=== PATIENT | female | born 1940 | race Caucasian/White ===

== ENCOUNTER 2020-03-01 08:00 | Inpatient (IN) ==
[2020-03-01] MEDS ORDERED: SODIUM CHLORIDE 0.9% 1000ML 500 ML IV ONE (08:51)
[2020-03-01] MEDS ORDERED: PANTOprazole 80 MG in DEXTROSE 5% 100 ML IV ONE (08:56)
[2020-03-01] MEDS ORDERED: PANTOPRAZOLE BOLUS/DRIP 1 EA IV STA (08:56)
--- NOTE | 2020-03-01 09:09 | Emergency Department Note ---
History of Present Illness General Chief complaint: Bleeding Stated complaint: ALOT OF BLOOD,NOT SURE RECTAL OR URINARY Time Seen by Provider: 03/01/20 08:22 Source: patient Mode of arrival: ambulatory Limitations: no limitations History of Present Illness Maximum Pain Intensity: 8 HPI Narrative: This is a 79-year-old female who presents to the ED with a chief complaint of rectal bleeding. The patient's bleeding started when she woke up this morning. She has had some generalized abdominal pain/cramps that felt like a. For the past couple days. Some diarrhea last night without blood. The patient initially did not know where the blood was coming from as it was just saturating her depends diaper. She has had some weakness throughout the week. She also reports a 20 pound unintentional weight loss in the last month. She does report a history of breast and colon cancer. The colon cancer was about 6 years ago and she had a resection as well as chemotherapy. No issues since en. Patient denies any lightheadedness, dizziness, chest pains or shortness of breath. She has not had recent fevers or illness. She is not on any blood thinners or antiplatelets. The patient does have a history of right ureteral stent placed 2 weeks ago. Home Medications Home Medications Medication Instructions Recorded Confirmed Type Lactobacillus acidophilus 5,000 mmu cells PO DAILY #30 cap 01/30/20 03/01/20 Rx acetaminophen 500 mg tablet 500 mg PO Q6H PRN #30 tab 01/30/20 03/01/20 Rx nitrofurantoin macrocrystal 50 mg 50 mg PO DAILY #30 cap 01/30/20 03/01/20 Rx capsule atenolol 50 mg PO HS 01/31/20 03/01/20 History famotidine [Pepcid AC] 20 mg PO DAILY PRN 01/31/20 03/01/20 History lisinopril 20 mg PO HS 01/31/20 03/01/20 History omeprazole 20 mg PO QAM 01/31/20 03/01/20 History amlodipine 50 mg PO DAILY 03/01/20 03/01/20 History Allergies Allergy/AdvReac Type Severity Reaction Status Date / Time No Known Allergies Allergy Unknown Unverified 03/01/20 09:01 Past Med/Surg History Medical History Anxiety Breast cancer pre-cancerous/+ right lumpectomy- RUE limb restriction Colon cancer s/p colon resection, chemo/xrt (2012) CVA (cerebral vascular accident) 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- residual "slowing" in general Depression Fibromyalgia Hypertension Obesity Renal calculus Stage 3 chronic kidney disease Surgical History H/O breast surgery 2012 H/O: hysterectomy History of colon surgery r/t colon cancer Hx of lumpectomy right Family History Family/Other Prostate cancer Social History Smoking Status: Current every day smoker packs per day: 1; Cigarettes Per Day: 1/2 ppd x 20 years; Second Hand Exposure: No; Hx Alcohol Use: No Hx Substance Use: No Preferred Language: [place] Communication Ability: Effective Executive Receptionist Required: No Beliefs That Will Affect Care: None marital status: Current Living Situation: Family Current Living Situation Comment: live with daughter current occupational status: retired Feels Safe at Home: Yes Review of Systems A total of 10 systems reviewed and were otherwise negative Physical Exam Vital Signs: Vital Signs - 24 hr 03/01/20 08:08 03/01/20 08:35 03/01/20 09:04 Temperature 37.1 C Temperature Source Oral Oral Pulse Rate 64 Pulse Rhythm Regular Pulse Strength Normal Respiratory Rate 18 Respiratory Effort / Characteristics Non-Labored Sponta neous Respiratory Depth Normal Respiratory Patter n Regular Blood Pressure 148/83 H Blood Pressure Dodie n 104 Blood Pressure Pos ition Sitting Pulse Oximetry 96 96 Oxygen Delivery Me thod Room Air Room Air Room Air Sepsis Recent Feve r Within 48 Hours No Sepsis New/Unexpla ined Change in Men joo Status No Sepsis Action Take n by Nursing No Action Required 03/01/20 09:50 03/01/20 09:57 03/01/20 10:00 Temperature Temperature Source Pulse Rate 72 70 71 Pulse Rhythm Pulse Strength Respiratory Rate 23 20 Respiratory Effort / Characteristics Respiratory Depth Respiratory Patter n Blood Pressure 171/97 H 178/89 H Blood Pressure Dodie n 123 114 Blood Pressure Pos ition Pulse Oximetry Oxygen Delivery Me thod Sepsis Recent Feve r Within 48 Hours Sepsis New/Unexpla ined Change in Men joo Status Sepsis Action Take n by Nursing Physical Exam: CONSTITUTIONAL/VITAL SIGNS: Reviewed / noted above. GENERAL: Non-toxic in appearance. INTEGUMENTARY: Warm, dry, and [employer]. HEAD: Normocephalic. EYES: without scleral icterus or trauma. ENT/OROPHARYNX: clear and moist. LYMPHADENOPATHY/NECK: Is supple without lymphadenopathy or meningismus. RESPIRATORY: Lungs clear and equal. CARDIOVASCULAR: Regular rate and rhythm. GI/ABDOMEN: Soft and tender diffusely. No organomegaly or pulsatile mass. No rebound or guarding. Normal bowel sounds. EXTREMITIES: Warm and well perfused. BACK: No CVA tenderness. NEUROLOGICAL: Intact without focal deficits. PSYCHIATRIC: normal affect. MUSCULOSKELETAL: Normally developed with good muscle tone. RECTAL: Gross blood on rectal exam. No palpable mass. TRIAGE NURSING DOCUMENTATION REVIEWED. Course Administered Medications Pantoprazole Sodium 40 mg/ (Dextrose) 100 mls @ 20 mls/hr IV Q5H CHAO Stop: 03/31/20 09:11 Last Admin: 03/01/20 09:47 Dose: 8 mg/hr, 20 mls/hr Documented by: [id number] Lactated Ringer's (Lr) 1,000 mls @ 100 mls/hr IV .Q10H CHAO Stop: 03/02/20 05:44 Last Admin: 03/01/20 10:27 Dose: 100 mls/hr Documented by: [id number] Ioversol (Optiray 320 100ml) 94 ml IV ONCE PRN PRN Reason: Interaction Checking Stop: 03/05/20 10:21 Last Admin: 03/01/20 10:22 Dose: 94 ml Documented by: [id number] Discontinued Medications Sodium Chloride (Nss 1000ml) 500 mls @ 999 mls/hr IV .Q31M ONE Stop: 03/01/20 09:21 Last Infusion: 03/01/20 10:26 Dose: 0 mls/hr Documented by: [id number] Admin: 03/01/20 09:47 Dose: 999 mls/hr Documented by: [id number] Pantoprazole Sodium (Protonix Bolus/Drip) 0 mls @ 1 mls/hr IV ONE STA Stop: 03/01/20 08:57 Last Admin: 03/01/20 10:28 Dose: Not Given Documented by: [id number] Pantoprazole Sodium 80 mg/ (Dextrose) 120 mls @ 400 mls/hr IV NOW ONE Stop: 03/01/20 09:13 Last Infusion: 03/01/20 10:15 Dose: 0 mls/hr Documented by: [id number] Admin: 03/01/20 09:47 Dose: 400 mls/hr Documented by: [id number] Medical Decision Making Differential Diagnosis Differential includes acute coronary syndrome, myocardial infarction, CVA, TIA, anemia, infection, pneumonia, UTI, pyelonephritis, poor nutrition, dehydration, electrolyte disturbance,hypoglycemia, GI bleeding. Medical Records Attestation: I reviewed the patient's medical records. Home Medications Current Medication List: was personally reviewed by me Laboratory Data Attestation: I reviewed the patient's lab results. Result diagrams: 03/01/20 09:03 03/01/20 09:03 Lab Results 03/01/20 03/01/20 03/01/20 Range/Units 09:03 09:03 09:03 WBC 10.37 (4.8-10.8) K/uL RBC 4.25 (4.2-5.4) M/uL Hgb 12.4 (12.0-16.0) g/dL Hct 38.6 (37-47) % MCV 90.8 (80-100) fL MCH 29.2 (25-34) pg MCHC 32.1 (32-36) g/dL RDW Std Deviation 52.2 H (36.4-46.3) fL RDW Coeff of Radha 15.8 H (11.5-14.5) % Plt Count 184 (130-400) K/uL MPV 10.3 (7.4-10.4) fL Immature Gran % (Auto) 0.2 % Neut % (Auto) 83.1 % Lymph % (Auto) 4.7 % [place] % (Auto) 11.0 % Eos % (Auto) 0.8 % Baso % (Auto) 0.2 % Neut # (Auto) 8.62 H (1.4-6.5) K/uL Lymph # (Auto) 0.49 L (1.2-3.4) K/uL [place] # (Auto) 1.14 H (0.11-0.59) K/uL Eos # (Auto) 0.08 (0-0.5) K/uL Baso # (Auto) 0.02 (0-0.2) K/uL Immature Gran # (Auto) 0.02 (0.00-0.02) K/uL PT (9.0-12.0) Seconds INR (0.9-1.1) APTT (21.0-31.0) Seconds PTT Ratio Sodium 142 (136-145) mmol/L Potassium 4.4 (3.5-5.1) mmol/L Chloride 114 H (98-107) mmol/L Carbon Dioxide 24 (21-32) mmol/L Anion Gap 4.0 (3-11) BUN 27 H (7-18) mg/dl Creatinine 1.50 H (0.6-1.2) mg/dl Est Cr Clr Drug Dosing 29.2 ml/min Est GFR ( Amer) 38.5 Est GFR (Non-Af Amer) 33.3 BUN/Creatinine Ratio 18.1 (10-20) Glucose 113 H (70-99) mg/dl Calcium 9.4 (8.5-10.1) mg/dl Total Bilirubin 0.6 (0.2-1) mg/dl AST 9 L (15-37) U/L ALT 12 (12-78) U/L Alkaline Phosphatase 126 H (45-117) U/L Total Protein 6.7 (6.4-8.2) gm/dl Albumin 3.1 L (3.4-5.0) gm/dl Globulin 3.6 (2.5-4.0) gm/dl Albumin/Globulin Ratio 0.9 (0.9-2) Lipase 73 (73-393) U/L Blood Type A Positive Antibody Screen NEGATIVE 03/01/20 Range/Units 09:03 WBC (4.8-10.8) K/uL RBC (4.2-5.4) M/uL Hgb (12.0-16.0) g/dL Hct (37-47) % MCV (80-100) fL MCH (25-34) pg MCHC (32-36) g/dL RDW Std Deviation (36.4-46.3) fL RDW Coeff of Radha (11.5-14.5) % Plt Count (130-400) K/uL MPV (7.4-10.4) fL Immature Gran % (Auto) % Neut % (Auto) % Lymph % (Auto) % [place] % (Auto) % Eos % (Auto) % Baso % (Auto) % Neut # (Auto) (1.4-6.5) K/uL Lymph # (Auto) (1.2-3.4) K/uL [place] # (Auto) (0.11-0.59) K/uL Eos # (Auto) (0-0.5) K/uL Baso # (Auto) (0-0.2) K/uL Immature Gran # (Auto) (0.00-0.02) K/uL PT 11.5 (9.0-12.0) Seconds INR 1.1 (0.9-1.1) APTT 27.9 (21.0-31.0) Seconds PTT Ratio 1.0 Sodium (136-145) mmol/L Potassium (3.5-5.1) mmol/L Chloride (98-107) mmol/L Carbon Dioxide (21-32) mmol/L Anion Gap (3-11) BUN (7-18) mg/dl Creatinine (0.6-1.2) mg/dl Est Cr Clr Drug Dosing ml/min Est GFR ( Amer) Est GFR (Non-Af Amer) BUN/Creatinine Ratio (10-20) Glucose (70-99) mg/dl Calcium (8.5-10.1) mg/dl Total Bilirubin (0.2-1) mg/dl AST (15-37) U/L ALT (12-78) U/L Alkaline Phosphatase (45-117) U/L Total Protein (6.4-8.2) gm/dl Albumin (3.4-5.0) gm/dl Globulin (2.5-4.0) gm/dl Albumin/Globulin Ratio (0.9-2) Lipase (73-393) U/L Blood Type Antibody Screen Imaging Data Radiologist's Impression: CT scan of the abdomen pelvis: IMPRESSION: 1. Interval development of moderate colonic wall thickening and mild pericolonic infiltration of the distal transverse colon, splenic flexure, descending colon, sigmoid colon and likely the rectum since CT of January 10, 2020. This represents a nonspecific colitis which may be infectious, ischemic or inflammatory in etiology. No free air or abscess. 2. Severe right hydronephrosis, improved since CT of January 10, 2020 following ureteral stent insertion. Multiple right ureteral calculi/fragments that measure up to 7 mm, as described above. Urothelial thickening and mild perinephric and periureteral infiltration. Bilateral nephrolithiasis. No left ureteral calculi. 3. Stable presacral infiltration/fluid since CT of January 10, 2020. This is likely postsurgical. Previous sigmoid resection. No bowel obstruction. Blood Pressure Blood Pressure Findings: Elevated blood pressure Blood Pressure Disposition: further management by hospitalist MDM Narrative This is a 79-year-old female who presents to the ED with a chief complaint of lower GI bleeding. The patient's hemoglobin is currently fine. The patient otherwise has unremarkable electrolytes and chemistry panel. Her BUN is 27 creatinine is 1.5. The patient's rectal bleeding appears to be moderate. She was given some IV fluids here. She was also given some IV Protonix. The patient will require observation and further evaluation for her GI bleeding with her history of colon cancer. She is felt to be stable for admission and further evaluation inpatient. Impression & Plan Acute lower gastrointestinal bleeding Discharge Plan Visit Data Chief Complaint: Bleeding Stated Complaint: ALOT OF BLOOD,NOT SURE RECTAL OR URINARY ED Provider: Leo Mayberry ED Midlevel Provider: Demetrio Ann Discharge Problem: Acute lower gastrointestinal bleeding Patient Disposition: Being Evaluated by Hospitalist Condition: Fair Forms Stand Alone Forms: [facility], [facility] Emergency Department, Important Visit Information Prescriptions Prescriptions: No Action nitrofurantoin macrocrystal [Macrodantin] 50 mg capsule 50 mg PO DAILY Qty: 30 RF: 2 acetaminophen [Tylenol Extra Strength] 500 mg tablet 500 mg PO Q6H PRN (Reason: fever) Qty: 30 RF: 0 Lactobacillus acidophilus [Acidophilus] Capsule 5,000 mmu cells PO DAILY Qty: 30 RF: 0 lisinopril 20 mg tablet 20 mg PO HS RF: 0 famotidine [Pepcid AC] 20 mg tablet 20 mg PO DAILY PRN (Reason: Stomach Upset) RF: 0 omeprazole 20 mg capsule,delayed release(DR/EC) 20 mg PO QAM RF: 0 atenolol 50 mg tablet 50 mg PO HS RF: 0 amlodipine 5 mg tablet 50 mg PO DAILY RF: 0 Referrals Referrals: Jaden Jones MD [Primary Care Provider] -
--- NOTE | 2020-03-01 09:16 | Emergency Department Note ---
ED Visit Note This patient was seen in concert with Dr. Mayberry and we discussed and agreed upon the history, physical, assessment, and plan. See attending's note for details. . Resident Activity Tracking Resident Involvement: Resident Care Provided Care Provided: Adult ED
[2020-03-01 09:26] LABS: Basophils # (auto) 0.02 K/uL (0-0.2); Basophils % (auto) 0.2 %; Eosinophils # (auto) 0.08 K/uL (0-0.5); Eosinophils % (auto) 0.8 %; Hematocrit (blood only) 38.6 % (37-47); Hemoglobin 12.4 g/dL (12.0-16.0); Immature Granulocytes # (auto) 0.02 K/uL (0.00-0.02); Immature Granulocytes % (auto) 0.2 %; Lymphocytes # (auto) 0.49 K/uL (1.2-3.4); Lymphocytes % (auto) 4.7 %; Mean Corpuscular Hemoglobin 29.2 pg (25-34); Mean Corpuscular Hgb Conc 32.1 g/dL (32-36); Mean Corpuscular Volume 90.8 fL (80-100); Mean Platelet Volume 10.3 fL (7.4-10.4); Monocytes # (auto) 1.14 K/uL (0.11-0.59); Neutrophils # (auto) 8.62 K/uL (1.4-6.5); Neutrophils % (auto) 83.1 %; Platelet Count 184 K/uL (130-400); RDW Coefficient of Variation 15.8 % (11.5-14.5); RDW Standard Deviation 52.2 fL (36.4-46.3); Red Blood Count 4.25 M/uL (4.2-5.4); White Blood Count 10.37 K/uL (4.8-10.8)
[2020-03-01 09:38] LABS: INR 1.1 (0.9-1.1); Partial Thromboplastin Time 27.9 Seconds (21.0-31.0); Prothrombin Time 11.5 Seconds (9.0-12.0)
[2020-03-01 09:40] LABS: Albumin Level 3.1 gm/dl (3.4-5.0); BUN Creatinine Ratio 18.1 (10-20); Calcium 9.4 mg/dl (8.5-10.1); Creatinine Clr Calc Pharmacy 29.2 ml/min; Est GFR (African American) 38.5; Est GFR (Non-African American) 33.3; Potassium 4.4 mmol/L (3.5-5.1)
[2020-03-01 09:43] LABS: Albumin Globulin Ratio 0.9 (0.9-2); Bilirubin,Total 0.6 mg/dl (0.2-1); Globulin 3.6 gm/dl (2.5-4.0); Total Protein 6.7 gm/dl (6.4-8.2)
[2020-03-01] MEDS: PANTOprazole 40 MG in DEXTROSE 5% 100 ML IV SCH ×4 (09:47→23:51)
[2020-03-01] MEDS ORDERED: IOVERSOL 100ml IV PRN (10:22)
[2020-03-01] MEDS: LACTATED RINGER'S 1,000 ML IV SCH (10:27)
--- NOTE | 2020-03-01 10:43 | CT Scan Report ---
CT OF THE ABDOMEN AND PELVIS WITH CONTRAST CLINICAL HISTORY: Ab pain, Rectal bleed, hx colon cx COMPARISON STUDY: CT of the abdomen and pelvis January 10, 2020. TECHNIQUE: Following IV administration of 94 mL of Optiray-320, axial images of the abdomen and pelvi s were obtained from the lung bases to the proximal femurs. Images were reviewed in the axial, sagitt al, and coronal planes. IV contrast was administered without complication. Automated exposure contro l was utilized for the study. A dose lowering technique was utilized adhering to the principles of A AMALIA. CT DOSE: 474.62 mGy.cm FINDINGS: Bases are unremarkable. No pneumatosis, free air or portal venous gas is present. The liver , spleen, adrenal glands and pancreas are unremarkable. A few peripherally calcified fat attenuation foci within the omentum measure up to 2.4 cm. These are unchanged since CT of January 10, 2020. These are probably benign. Severe right hydronephrosis is noted. This has improved since CT of January 10, 2020 fo llowing ureteral stent insertion. Urothelial thickening is noted. There is right perinephric and [place] ureteral infiltration which is mild. Multiple right ureteral calculi/fragments are noted. These inclu de a 7 mm right ureteral calculus located just inferior to the sacroiliac joint. There is an addition al 5 mm distal right ureteral calculus. There are multiple smaller calculi. Bilateral renal calculi m easure up to 3 mm. There are no left ureteral. Postsurgical findings consistent with a sigmoid resect ion are noted. Presacral infiltration/fluid is unchanged. No abdominal or pelvic lymphadenopathy is p resent. The appendix is normal. There is interval development of moderate wall thickening with elton lonic infiltration of the distal transverse colon, descending colon and sigmoid colon as well as like ly the rectum since CT of January 20, 2020. There is no free air or abscess. Major vasculature is patent . There are no suspicious osseous lesions. No biliary or pancreatic ductal dilatation is present. IMPRESSION: 1. Interval development of moderate colonic wall thickening and mild pericolonic infiltration of the distal transverse colon, splenic flexure, descending colon, sigmoid colon and likely the rectum since CT of January 10, 2020. This represents a nonspecific colitis which may be infectious, ischemic or infla mmatory in etiology. No free air or abscess. 2. Severe right hydronephrosis, improved since CT of January 10, 2020 following ureteral stent insertion. Multiple right ureteral calculi/fragments that measure up to 7 mm, as described above. Urothelial th ickening and mild perinephric and periureteral infiltration. Bilateral nephrolithiasis. No left urete ral calculi. 3. Stable presacral infiltration/fluid since CT of January 10, 2020. This is likely postsurgical. Previou s sigmoid resection. No bowel obstruction. ACT 112: Negative or not required by law. Electronically signed by: Finesse Doss M.D. 03/01/2020 10:42 AM
[2020-03-01 11:32] LABS: Appearance Urine Cloudy (Clear); Bacteria Urine Automated Negative (Negative); Bilirubin Urine Negative (Negative); Blood Urine 3+ (Negative); Color Urine Yellow; Epithelial Cell Urine Auto >30 /lpf (0-5); Glucose Urine UA Negative (Negative); Ketones Urine Negative (Negative); Leukocyte Esterase Urine 2+ (Negative); Nitrite Urine Negative (Negative); Protein Urine 2+ (Negative); RBC Urine Automated >30 /hpf (0-4); Specific Gravity Urine 1.023 (1.000-1.030); Urobilinogen Urine Negative (Negative); pH Urine 6.5 (4.5-7.5)
--- NOTE | 2020-03-01 12:00 | History & Physical Report ---
Date of Service March 01, 2020 Assessment & Plan (1) Rectal bleed: (2) Nonspecific colitis: This is a 79-year-old female with PMH of hypertension, CKD 3, ureteral stones s/p right stent placement by urology last month, GERD, fibromyalgia, unspecified dementia, history of CVA without residual deficit, history of rectal cancer and other medical problems as below who presents with rectal bleeding since this morning. -Nausea and cramping LLQ abdominal pain since last evening. No fever, chills or melena. Hemoccult positive on rectal exam by ED physician -History of colon cancer 10 years prior with sigmoid resection and subsequent chemotherapy. No known recurrence since -NSAID use and current 1/2 ppd smoker -CT abd/pelvis with interval development of moderate colonic wall thickening and mild pericolonic infiltration of distal transverse colon, splenic flexure, descending colon, sigmoid colon and likely to rectum. Represents noninfectious colitis which may be infectious, ischemic or inflammatory in etiology. No free air or abscess -Hemoglobin stable at 12.4. No leukocytosis. Trend H&H every 6 hours, keep n.p.o., continue IV Protonix bolus and drip started in ED, gentle IV fluids and pain control -Stool culture and C. difficile pending. Will cover for possible infectious colitis with Rocephin and flagyl -Discussed with GI service, who will evaluate patient (3) Complicated UTI (urinary tract infection): (4) Right ureteral calculus: History of ureteral stones with recent right ureteral stent insertion by [facility] urology on 01/10/20. Completed course of postop Macrobid -CT abd/pelvis today with severe right hydronephrosis, improved since CT of January 10, 2020 following ureteral stent insertion. Multiple right ureteral calculi/fragments that measure up to 7 mm, as described above. Urothelial thickening and mild perinephric and periureteral infiltration. Bilateral nephrolithiasis. No left ureteral calculi -UA abnormal. Urine culture pending. Cover empirically with Rocephin (5) Hypertension: BP elevated at 189/110 initially. Repeat BP 178/89 Had stopped antihypertensives until recently, when she followed up with PCP and was instructed to resume atenolol and amlodipine -Will move amlodipine and atenolol to take in the morning and lisinopril in the evening, which will hopefully improve BP -Monitor closely (6) Stage 3 chronic kidney disease: Baseline creatinine ~1.3/1.4. Receiving gentle IV fluids, so we will continue lisinopril for now. Monitor daily BMP (7) CVA (cerebral vascular accident): H/o right anterior occipital stroke in 10/2018 per record- residual "slowing" in general -Not currently taking aspirin (8) Anxiety: (9) Fibromyalgia: Continue venlafaxine DVT Ppx: SCDs Code status: DNR per discussion with patient, daughter PCP: Karen Dispo: Admitted to [facility]. Discharge planning ordered. Patient seen in collaboration with Dr. Tolbert. Please see addendum. History of Present Illness Chief Complaint: Rectal bleeding Primary Care Provider: Jaden Jones MD This is a 79-year-old female with PMH of hypertension, CKD 3, ureteral stones s/p right stent placement by urology last month, GERD, fibromyalgia, unspecified dementia, history of CVA without residual deficit, history of rectal cancer and other medical problems as below who presents with rectal bleeding since this morning. Patient felt nauseous with a few episodes of brown diarrhea last evening. States that diarrhea is somewhat normal for her, so she was not concerned. This morning, however, she awoke to bright red blood soaking the bottom of her depends. When she used the bathroom, she continued to have bright red blood output into the toilet bowl. Denies any clots. Endorses associated diffuse cramping abdominal pain with some bloating. No fever or chills. Denies any lightheadedness, visual changes, chest pain or palpitations. No shortness of breath. Does have history of colon cancer approximately 10 years ago that was treated in [place] with partial colectomy and chemo. Denies any recurrence or issues since then. Reported weight loss to ED providers but then unsure to me. Per chart review, patient has lost approximately 13 pounds since November. Denies any dysuria, pyuria, melena or constipation. History of frequent Motrin use but then switch to extra strength Tylenol a few months before resuming it this past week. Has taken 600 mg 4 times over the last 6 days. Currently smokes 1/2 ppd. Allergies Allergy/AdvReac Type Severity Reaction Status Date / Time No Known Allergies Allergy Unknown Unverified 03/01/20 09:01 Home Medications Home Medications Medication Instructions Recorded Confirmed Type Lactobacillus acidophilus 5,000 mmu cells PO DAILY #30 cap 01/30/20 03/01/20 Rx acetaminophen 1,000 mg PO HS PRN 03/01/20 03/01/20 History albuterol sulfate 1 inh INHALATION QID PRN 03/01/20 03/01/20 History amlodipine 5 mg PO HS 03/01/20 03/01/20 History atenolol 100 mg PO HS 03/01/20 03/01/20 History atorvastatin 20 mg PO HS 03/01/20 03/01/20 History cyanocobalamin (vitamin B-12) 1,000 mcg PO HS 03/01/20 03/01/20 History docusate sodium 100 mg PO HS PRN 03/01/20 03/01/20 History gabapentin 300 mg PO BID 03/01/20 03/01/20 History ibuprofen [Motrin IB] 200 mg PO Q4H PRN 03/01/20 03/01/20 History lisinopril 40 mg PO HS 03/01/20 03/01/20 History omeprazole 40 mg PO DAILY PRN 03/01/20 03/01/20 History venlafaxine 37.5 mg PO DAILY 03/01/20 03/01/20 History Past Med/Surg History Family History Family/Other Prostate cancer Social History Smoking Status: Current every day smoker packs per day: 1; Cigarettes Per Day: 1/2 ppd x 20 years; Second Hand Exposure: No; Hx Alcohol Use: No Hx Substance Use: No Preferred Language: Kyrgyz Communication Ability: Effective Speed Belt Sander Required: No Beliefs That Will Affect Care: None marital status: Current Living Situation: Family Current Living Situation Comment: live with daughter current occupational status: retired Feels Safe at Home: Yes Review of Systems Review of Systems: At least ten systems reviewed and negative except as noted in the HPI. Physical Exam Physical Exam: General Appearance: WD/WN, vitals as above, NAD, sitting up in bed, anxious Head: normocephalic, atraumatic Eyes: normal inspection, PERRL, conjunctivae normal, anicteric sclerae ENT: external ear and nose normal, oropharynx normal Neck: trachea midline, no thyromegaly normal visual inspection Respiratory: normal respiratory effort, lungs clear to auscultation, no wheeze, rales, rhonchi. No accessory muscle use Cardiovascular: regular rate, rhythm, no murmur appreciated, normal peripheral pulses. Vessels: no JVD Chest: normal inspection of chest Abdomen/GI: normal bowel sounds, soft, TTP of LLQ and mid-abdomen, non- distended, no hepatosplenomegaly Extremities/Musculoskeletal: no cyanosis or clubbing, extremities motor strength 5/5 Neurologic: PERRL, EOMI, accommodation nl, no face palsy, no dysarthria, CN's II-XI intact bilaterally and moves all extremities Psychiatric: A+Ox3 but underlying dementia, euthymic affect Skin: no rashes, normal color, warm/dry Results & Data Results & Data ([facility]) Vital Signs (Past 12 Hours) Vital Signs Temp Pulse Resp BP Pulse Ox 03/01/20 10:00 71 20 178/89 H 03/01/20 09:57 70 03/01/20 09:50 72 23 171/97 H 03/01/20 09:04 96 03/01/20 08:08 37.1 C 64 18 148/83 H 96 Laboratory Results Short CBC 03/01/20 03/01/20 03/01/20 Range/Units 09:03 09:03 09:03 WBC 10.37 (4.8-10.8) K/uL RBC 4.25 (4.2-5.4) M/uL Hgb 12.4 (12.0-16.0) g/dL Hct 38.6 (37-47) % MCV 90.8 (80-100) fL MCH 29.2 (25-34) pg MCHC 32.1 (32-36) g/dL RDW Std Deviation 52.2 H (36.4-46.3) fL RDW Coeff of Radha 15.8 H (11.5-14.5) % Plt Count 184 (130-400) K/uL MPV 10.3 (7.4-10.4) fL Immature Gran % (Auto) 0.2 % Neut % (Auto) 83.1 % Lymph % (Auto) 4.7 % [place] % (Auto) 11.0 % Eos % (Auto) 0.8 % Baso % (Auto) 0.2 % Neut # (Auto) 8.62 H (1.4-6.5) K/uL Lymph # (Auto) 0.49 L (1.2-3.4) K/uL [place] # (Auto) 1.14 H (0.11-0.59) K/uL Eos # (Auto) 0.08 (0-0.5) K/uL Baso # (Auto) 0.02 (0-0.2) K/uL Immature Gran # (Auto) 0.02 (0.00-0.02) K/uL PT (9.0-12.0) Seconds INR (0.9-1.1) APTT (21.0-31.0) Seconds PTT Ratio Sodium 142 (136-145) mmol/L Potassium 4.4 (3.5-5.1) mmol/L Chloride 114 H (98-107) mmol/L Carbon Dioxide 24 (21-32) mmol/L Anion Gap 4.0 (3-11) BUN 27 H (7-18) mg/dl Creatinine 1.50 H (0.6-1.2) mg/dl Est Cr Clr Drug Dosing 29.2 ml/min Est GFR ( Amer) 38.5 Est GFR (Non-Af Amer) 33.3 BUN/Creatinine Ratio 18.1 (10-20) Glucose 113 H (70-99) mg/dl Calcium 9.4 (8.5-10.1) mg/dl Total Bilirubin 0.6 (0.2-1) mg/dl AST 9 L (15-37) U/L ALT 12 (12-78) U/L Alkaline Phosphatase 126 H (45-117) U/L Total Protein 6.7 (6.4-8.2) gm/dl Albumin 3.1 L (3.4-5.0) gm/dl Globulin 3.6 (2.5-4.0) gm/dl Albumin/Globulin Ratio 0.9 (0.9-2) Lipase 73 (73-393) U/L Urine Color Urine Appearance (Clear) Urine pH (4.5-7.5) Ur Specific Jackson (1.000-1.030) Urine Protein (Negative) Urine Glucose (UA) (Negative) Urine Ketones (Negative) Urine Blood (Negative) Urine Nitrite (Negative) Urine Bilirubin (Negative) Urine Urobilinogen (Negative) Ur Leukocyte Esterase (Negative) Urine WBC (Auto) (0-5) /hpf Urine RBC (Auto) (0-4) /hpf U Hyaline Cast (Auto) (0-5) /lpf U Epithel Cells (Auto) (0-5) /lpf Urine Bacteria (Auto) (Negative) Blood Type A Positive Antibody Screen NEGATIVE 03/01/20 03/01/20 Range/Units 09:03 11:05 WBC (4.8-10.8) K/uL RBC (4.2-5.4) M/uL Hgb (12.0-16.0) g/dL Hct (37-47) % MCV (80-100) fL MCH (25-34) pg MCHC (32-36) g/dL RDW Std Deviation (36.4-46.3) fL RDW Coeff of Radha (11.5-14.5) % Plt Count (130-400) K/uL MPV (7.4-10.4) fL Immature Gran % (Auto) % Neut % (Auto) % Lymph % (Auto) % [place] % (Auto) % Eos % (Auto) % Baso % (Auto) % Neut # (Auto) (1.4-6.5) K/uL Lymph # (Auto) (1.2-3.4) K/uL [place] # (Auto) (0.11-0.59) K/uL Eos # (Auto) (0-0.5) K/uL Baso # (Auto) (0-0.2) K/uL Immature Gran # (Auto) (0.00-0.02) K/uL PT 11.5 (9.0-12.0) Seconds INR 1.1 (0.9-1.1) APTT 27.9 (21.0-31.0) Seconds PTT Ratio 1.0 Sodium (136-145) mmol/L Potassium (3.5-5.1) mmol/L Chloride (98-107) mmol/L Carbon Dioxide (21-32) mmol/L Anion Gap (3-11) BUN (7-18) mg/dl Creatinine (0.6-1.2) mg/dl Est Cr Clr Drug Dosing ml/min Est GFR ( Amer) Est GFR (Non-Af Amer) BUN/Creatinine Ratio (10-20) Glucose (70-99) mg/dl Calcium (8.5-10.1) mg/dl Total Bilirubin (0.2-1) mg/dl AST (15-37) U/L ALT (12-78) U/L Alkaline Phosphatase (45-117) U/L Total Protein (6.4-8.2) gm/dl Albumin (3.4-5.0) gm/dl Globulin (2.5-4.0) gm/dl Albumin/Globulin Ratio (0.9-2) Lipase (73-393) U/L Urine Color Yellow Urine Appearance Cloudy A (Clear) Urine pH 6.5 (4.5-7.5) Ur Specific Jackson 1.023 (1.000-1.030) Urine Protein 2+ H (Negative) Urine Glucose (UA) Negative (Negative) Urine Ketones Negative (Negative) Urine Blood 3+ H (Negative) Urine Nitrite Negative (Negative) Urine Bilirubin Negative (Negative) Urine Urobilinogen Negative (Negative) Ur Leukocyte Esterase 2+ H (Negative) Urine WBC (Auto) 10-30 H (0-5) /hpf Urine RBC (Auto) >30 H (0-4) /hpf U Hyaline Cast (Auto) 1-5 (0-5) /lpf U Epithel Cells (Auto) >30 H (0-5) /lpf Urine Bacteria (Auto) Negative (Negative) Blood Type Antibody Screen BMP 03/01/20 09:03 Sodium 142 Potassium 4.4 Chloride 114 H Carbon Dioxide 24 BUN 27 H Creatinine 1.50 H Glucose 113 H Calcium 9.4 Liver Function 03/01/20 Range/Units 09:03 Total Bilirubin 0.6 (0.2-1) mg/dl AST 9 L (15-37) U/L ALT 12 (12-78) U/L Alkaline Phosphatase 126 H (45-117) U/L Albumin 3.1 L (3.4-5.0) gm/dl Urine 03/01/20 Range/Units 11:05 Urine Color Yellow Urine Appearance Cloudy A (Clear) Urine pH 6.5 (4.5-7.5) Ur Specific Jackson 1.023 (1.000-1.030) Urine Protein 2+ H (Negative) Urine Glucose (UA) Negative (Negative) Diagnostic Findings CT abd/pelvis: IMPRESSION: 1. Interval development of moderate colonic wall thickening and mild pericolonic infiltration of the distal transverse colon, splenic flexure, descending colon, sigmoid colon and likely the rectum since CT of January 10, 2020. This represents a nonspecific colitis which may be infectious, ischemic or inflammatory in etiology. No free air or abscess. 2. Severe right hydronephrosis, improved since CT of January 10, 2020 following ureteral stent insertion. Multiple right ureteral calculi/fragments that measure up to 7 mm, as described above. Urothelial thickening and mild perinephric and periureteral infiltration. Bilateral nephrolithiasis. No left ureteral calculi. 3. Stable presacral infiltration/fluid since CT of January 10, 2020. This is likely postsurgical. Previous sigmoid resection. No bowel obstruction. Code Status & VTE Plan VTE Prophylaxis Plan VTE Prophylaxis will be ordered: Yes Supervising Physician Co-Signing Physician Notes Patient is a 79-year-old female with history of rectal cancer, hypertension, CKD stage III, nephrolithiasis, fibromyalgia and other medical problems presents with history of rectal rectal bleeding associated with nausea, diarrhea, abdominal pain and bloating since 1 day duration. She admits to taking ibuprofen intermittently. Patient had partial colectomy for colon cancer in the past. CT abdomen showed findings suggestive of moderate chronic wall thickening and mild stanford-colonic infiltration of the distal transverse colon, splenic flexure, descending colon, sigmoid colon and likely the rectum. Also noted severe right hydronephrosis which is improved from prior CT imaging, urothelial thickening and mild perinephric and periureteral infiltration. Her hemoglobin is noted to be 12.4. No leukocytosis noted. Creatinine 1.5. BUN mildly elevated at 27. On exam patient is moderately built and nourished, no apparent distress, normocephalic atraumatic, lungs are clear to auscultation, decreased breath sounds, S1-S2, no murmur, abdomen soft, left lower quadrant tender, no guarding or rigidity, normal bowel sounds, no pedal edema, grossly no focal neurologic deficits. Patient is admitted for management of acute lower GI bleed, colitis. Continue Protonix drip, IV fluids. Ibuprofen discontinued. Avoid anticoagulants. Monitor H&H and transfuse PRBCs as needed. GI consulted. Started on empiric antibiotics for colitis and perinephric infiltration. Also consulted urology for right ureteral stone and possible stent removal(due for procedure as per patient's family). Will control blood pressure with antihypertensives. Patient prefers to be DNI DNR as per my discussion. I personally reviewed the record. Patient is interviewed and examined at bedside. Patient's care is coordinated with Andria Lora PA-C. Please refer to the documentation above for details of patient's presentation and for discussion of other issues.
[2020-03-01] MEDS ORDERED: AMLODIPINE BESYLATE 5 MG TAB PO STA (13:29)
[2020-03-01] MEDS ORDERED: cefTRIAXone SODIUM 1000MG/50ML D5W IV ONE (14:05)
--- NOTE | 2020-03-01 14:10 | Gastrointestinal Consultation ---
Date of Consultation March 01, 2020 Assessment & Plan (1) Nonspecific colitis: The pattern of pain, preceding diarrhea/bloody diarrhea and distribution of the colitis is most suggestive of ischemic colitis. That she is a smoker also supports this. Other differentials considered include a diverticular bleed and infection colitis. Will check for c-diff and watch for stool culture results. Recommend clear liquid diet tonight, advance tomorrow if no further rectal bleeding. IV fluids Agree with antibiotics to prevent translocation of bacterial. No clear evidence of an UGI bleed and indication for PPI drip. Consider discontinuing. Recheck CBC tomorrow AM. Present on Admission?: Yes Supervising Physician Co-Signing Physician Notes I have personally seen and examined the patient with NEVA Topete on 03/01/20. Her note reflects my exam and findings. I agree with her impression and plan. Most c/w ischemia. Jared Lundberg History of Present Illness Reason for Consultation: rectal bleeding Requesting Physician: Andria Saab PA-C, [facility] Attending Physician: Dr. Ann History of Present Illness Ms. Alma Gasca is a 79 yr old female pt of Jaden Owens MD. She carries a hx of HTN, CKD3, ureteral stones s/p right stent placement by urology last month, GERD, fibromyalgia, dementia, CVA, and rectal cancer. GI is consulted for rectal bleeding. Her OP EPIC records mention a hx of rectal cancer in 2012 but we do not have any records of recent endoscopy. She presented to the ED this morning with report of some abdominal cramping followed by diarrhea last evening. She slept well last night. On awakening this morning, there was a large amt of bright red blood in her depends. She went to the toilet and passed more blood with clots. No further bleeding since this morning. CT on arrival with suggestion of colon wall thickening from the distal descending to the rectum. She is awake, alert, oriented and mentions some LLQ discomfort but does not appear acutely painful. Abdomen is soft on palpation. She is hemodynamically stable without leukocytosis or fever and her Hb is 12. She does have some acute worsening of renal function BUN 27, Cr 1.5. Ceftriaxone and a PPI drip were started. Allergies Allergy/AdvReac Type Severity Reaction Status Date / Time No Known Allergies Allergy Unknown Unverified 03/01/20 09:01 Home Medications Home Medications Medication Instructions Recorded Confirmed Type Lactobacillus acidophilus 5,000 mmu cells PO DAILY #30 cap 01/30/20 03/01/20 Rx acetaminophen 1,000 mg PO HS PRN 03/01/20 03/01/20 History albuterol sulfate 1 inh INHALATION QID PRN 03/01/20 03/01/20 History amlodipine 5 mg PO HS 03/01/20 03/01/20 History atenolol 100 mg PO HS 03/01/20 03/01/20 History atorvastatin 20 mg PO HS 03/01/20 03/01/20 History cyanocobalamin (vitamin B-12) 1,000 mcg PO HS 03/01/20 03/01/20 History docusate sodium 100 mg PO HS PRN 03/01/20 03/01/20 History gabapentin 300 mg PO BID 03/01/20 03/01/20 History ibuprofen [Motrin IB] 200 mg PO Q4H PRN 03/01/20 03/01/20 History lisinopril 40 mg PO HS 03/01/20 03/01/20 History omeprazole 40 mg PO DAILY PRN 03/01/20 03/01/20 History venlafaxine 37.5 mg PO DAILY 03/01/20 03/01/20 History Patient History Family History Family/Other Prostate cancer Social History Smoking Status: Current every day smoker packs per day: 1; Cigarettes Per Day: 1/2 ppd x 20 years; Second Hand Exposure: No; Do You Dip or Chew Tobacco: No; Tobacco Cessation Education Requested by Patient: No Hx Alcohol Use: No Hx Substance Use: No Preferred Language: Honduran Communication Ability: Effective Rim Buster Required: No Beliefs That Will Affect Care: None marital status: Current Living Situation: Family Current Living Situation Comment: live with daughter current occupational status: retired Other Information That Helps Us Care for You: No Feels Safe at Home: Yes Safety Concerns: Feels Safe At This Time Review of Systems Constitutional: + weight loss; no fever, no chills, no sweats and no fatigue Physical Exam Constitutional: WD/WN, vitals as above Eyes: PERRL, conjunctivae normal, anicteric sclerae ENMT: external ear and nose normal, oropharynx normal Neck: trachea midline, no thyromegaly Respiratory: normal respiratory effort, lungs clear to auscultation Cardiovascular: RRR, no murmur, no edema Gastrointestinal (Abdomen): Inspection/Auscultation: abdomen normal to inspection and normal bowel sounds; abdomen not distended Percussion/Palpation: + abdomen tender (LLQ) and abdomen soft Musculoskeletal: no cyanosis or clubbing, extremities motor strength 5/5 pt c/o pain on touching her arms of legs Skin: no rashes, warm and dry Neurologic: PERRL, EOMI, accommodation nl, no face palsy, no dysarthria Psychiatric: Orientation: alert Insight: + poor insight Judgement: + poor judgement Lymphatic: no cervical or axillary lymphadenopathy Results & Data ([facility]) Vital Signs (Past 12 Hours) Vital Signs Temp Pulse Resp BP Pulse Ox 03/01/20 10:00 71 20 178/89 H 03/01/20 09:57 70 03/01/20 09:50 72 23 171/97 H 03/01/20 09:04 96 03/01/20 08:08 37.1 C 64 18 148/83 H 96 Laboratory Results WBC 10, Hb 12, Hct 36, platelets 184, IR 1.1, Na 142, K 4.4, BUN 27, Cr 1.5 (baseline 1.2). Diagnostic Findings Ct with IV contrast: 1. Interval development of moderate colonic wall thickening and mild pericolonic infiltration of the distal transverse colon, splenic flexure, descending colon, sigmoid colon and likely the rectum since CT of January 10, 2020. This represents a nonspecific colitis which may be infectious, ischemic or inflammatory in etiology. No free air or abscess. 2. Severe right hydronephrosis, improved since CT of January 10, 2020 following ureteral stent insertion. Multiple right ureteral calculi/fragments that measure up to 7 mm, as described above. Urothelial thickening and mild perinephric and periureteral infiltration. Bilateral nephrolithiasis. No left ureteral calculi. 3. Stable presacral infiltration/fluid since CT of January 10, 2020. This is likely postsurgical. Previous sigmoid resection. No bowel obstruction.
[2020-03-01] MEDS: cefTRIAXone SODIUM 1,000 MG in DEXTROSE 5% 50 ML IV SCH (14:12)
[2020-03-01] MEDS ORDERED: ONDANSETRON INJ 2 MG/ML 2 ML VIAL IV PRN (17:15)
[2020-03-01] MEDS ORDERED: ALBUTEROL HFA 8 GM INHALER INH PRN (17:15)
[2020-03-01] MEDS: ACETAMINOPHEN 1000 MG/100 ML IV IV SCH ×2 (17:16→21:03)
[2020-03-01] MEDS ORDERED: METRONIDAZOLE CONSULT ACTIVE PRN (17:32)
[2020-03-01 18:27] LABS: Hematocrit (blood only) 38.4 % (37-47); Hemoglobin 12.3 g/dL (12.0-16.0)
[2020-03-01] MEDS: metroNIDAZOLE 500 MG/100 ML BAG IV SCH (18:31)
[2020-03-01] MEDS: HydrALAZINE 10 MG TAB PO PRN (19:31)
--- NOTE | 2020-03-01 19:46 | Urology Consultation ---
Date of Consultation March 01, 2020 Assessment & Plan (1) Right ureteral calculus: (2) Hydronephrosis: Alert urology 1 patient is cleared from a GI point of view for ureteroscopy History of Present Illness Attending Physician: Jose Tolbert MD History of Present Illness The patient is a 79-year-old female who from a urologic point of view several months ago was found to have hydronephrosis of the right kidney. She had a CAT scan that showed distal ureteral obstruction loss of kidney function and a high- grade obstruction with significant hydronephrosis down to the distal ureter. He was scheduled for right ureteroscopy but at the time of the procedure in early January she was found to have significant asthma and it was felt that she could only have a stent placed. Stent was placed and she was going to be brought back when her asthma was controlled for right ureteroscopy. Unfortunately the patient woke up today with abdominal pain and had significant rectal bleeding and is in the hospital for rectal bleeding urine culture is pending the patient has not had any problems with the stent and denies any gross hematuria or flank pain. Pending resolution of the rectal bleeding and when she is felt to be stable from a GI point of view she should be scheduled as soon as possible for right ureteroscopy. Theoretically this could be done this admission if it was felt safe Allergies Allergy/AdvReac Type Severity Reaction Status Date / Time No Known Allergies Allergy Unknown Unverified 03/01/20 09:01 Home Medications Home Medications Medication Instructions Recorded Confirmed Type Lactobacillus acidophilus 5,000 mmu cells PO DAILY #30 cap 01/30/20 03/01/20 Rx acetaminophen 1,000 mg PO HS PRN 03/01/20 03/01/20 History albuterol sulfate 1 inh INHALATION QID PRN 03/01/20 03/01/20 History amlodipine 5 mg PO HS 03/01/20 03/01/20 History atenolol 100 mg PO HS 03/01/20 03/01/20 History atorvastatin 20 mg PO HS 03/01/20 03/01/20 History cyanocobalamin (vitamin B-12) 1,000 mcg PO HS 03/01/20 03/01/20 History docusate sodium 100 mg PO HS PRN 03/01/20 03/01/20 History gabapentin 300 mg PO BID 03/01/20 03/01/20 History ibuprofen [Motrin IB] 200 mg PO Q4H PRN 03/01/20 03/01/20 History lisinopril 40 mg PO HS 03/01/20 03/01/20 History omeprazole 40 mg PO DAILY PRN 03/01/20 03/01/20 History venlafaxine 37.5 mg PO DAILY 03/01/20 03/01/20 History Patient History Family History Family/Other Prostate cancer Social History Smoking Status: Current every day smoker packs per day: 1; Cigarettes Per Day: 1/2 ppd x 20 years; Second Hand Exposure: No; Do You Dip or Chew Tobacco: No; Tobacco Cessation Education Requested by Patient: No Hx Alcohol Use: No Hx Substance Use: No Preferred Language: Croatian Communication Ability: Effective [employer]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 Beliefs That Will Affect Care: None marital status: Current Living Situation: Family Current Living Situation Comment: live with daughter current occupational status: retired Other Information That Helps Us Care for You: No Feels Safe at Home: Yes Safety Concerns: Feels Safe At This Time Physical Exam Constitutional: well developed Eyes: PERRL, conjunctivae normal, anicteric sclerae ENMT: external ear and nose normal, oropharynx normal Neck: trachea midline, no thyromegaly Respiratory: normal respiratory effort Cardiovascular: Extremities: no calf tenderness Gastrointestinal (Abdomen): Percussion/Palpation: + abdomen tender Musculoskeletal: no cyanosis or clubbing, extremities motor strength 5/5 Skin: no rashes, warm and dry Neurologic: patellar DTR's 2+ bilat, sensation intact Psychiatric: Orientation: alert and oriented to place Eye Contact: good eye contact Genitourinary: No flank pain Lymphatic: no cervical or axillary lymphadenopathy Results & Data Vital Signs (Past 12 Hours) Vital Signs Temp Pulse Pulse Resp BP BP Pulse Ox 03/01/20 19:35 36.8 C 74 18 175/90 H 94 03/01/20 19:30 78 03/01/20 16:00 80 30 H 180/111 H 98 03/01/20 15:31 78 27 H 190/99 H 97 03/01/20 15:30 76 31 H 97 03/01/20 15:00 74 23 191/92 H 96 03/01/20 10:00 71 20 178/89 H 03/01/20 09:57 70 03/01/20 09:50 72 23 171/97 H 03/01/20 09:04 96 03/01/20 08:08 37.1 C 64 18 148/83 H 96 PG Care Time/CCT Total # of Minutes Spent Total Time Spent with Patient: Total time spent is greater than 50% in coordination of care (as documented) at patient's floor/unit and/or counseling patient: Coding Level of Care Code 27400 Inpt Consult Level 2 Diagnoses Right ureteral calculus N20.1 Hydronephrosis N13.30
[2020-03-01] MEDS ORDERED: Nursing to Pharmacy Communication SCH ×2 (20:00→23:45)
[2020-03-01] MEDS: CYANOCOBALAMIN 500 MCG TABLET (VITAMIN B-12) PO SCH (20:37)
[2020-03-01] MEDS: ATORVASTATIN 20 MG TAB PO SCH (20:37)
[2020-03-01] MEDS: lisinopriL 40 MG TAB PO SCH (20:37)
[2020-03-01] MEDS: ATENOLOL 50 MG TABLET PO SCH (20:37)
[2020-03-01 23:13] LABS: Hematocrit (blood only) 37.3 % (37-47); Hemoglobin 12.2 g/dL (12.0-16.0)
[2020-03-02] MEDS: metroNIDAZOLE 500 MG/100 ML BAG IV SCH ×3 (02:19→18:08)
[2020-03-02] MEDS: LACTATED RINGER'S 1,000 ML IV SCH (03:44)
[2020-03-02] MEDS: PANTOprazole 40 MG in DEXTROSE 5% 100 ML IV SCH ×2 (03:45→07:53)
[2020-03-02] MEDS: ACETAMINOPHEN 1000 MG/100 ML IV IV SCH ×3 (04:54→21:02)
[2020-03-02] MEDS: HydrALAZINE 10 MG TAB PO PRN (07:54)
[2020-03-02] MEDS: AMLODIPINE BESYLATE 5 MG TAB PO SCH (07:54)
[2020-03-02] MEDS: VENLAFAXINE HCL 37.5 MG TAB PO SCH (07:54)
[2020-03-02 08:21] LABS: BUN Creatinine Ratio 11.2 (10-20); Calcium 8.6 mg/dl (8.5-10.1); Creatinine Clr Calc Pharmacy 41.3 ml/min; Est GFR (African American) 58.7; Est GFR (Non-African American) 50.6; Potassium 3.5 mmol/L (3.5-5.1)
[2020-03-02 08:41] LABS: Hemoglobin 12.8 g/dL (12.0-16.0); Mean Corpuscular Hemoglobin 29.9 pg (25-34); Mean Corpuscular Volume 91.1 fL (80-100); Mean Platelet Volume 10.4 fL (7.4-10.4); Platelet Count 181 K/uL (130-400); RDW Coefficient of Variation 15.7 % (11.5-14.5); RDW Standard Deviation 52.4 fL (36.4-46.3); Red Blood Count 4.28 M/uL (4.2-5.4); White Blood Count 9.38 K/uL (4.8-10.8)
[2020-03-02 08:48] LABS: Mean Corpuscular Hgb Conc 32.8 g/dL (32-36)
--- NOTE | 2020-03-02 14:12 | Gastroenterology Progress Note ---
Date of Service March 02, 2020 Assessment & Plan (1) Nonspecific colitis: Ms. Gasca christoph 79 yr old female with rectal bleeding and CT suggestive of nonspecific colitis. This is most likely ischemic colitis. Advance diet as tolerated. Would continue 7-day course of broad-spectrum antibiotic biotics for prevention of translocation of bacteria. Recommend outpatient colonoscopy especially in light of her history of colon cancer. We will try to contact family to arrange (as patient with dementia). Admission and Anticipated Discharge Date Admission Date: March 01, 2020 Supervising Physician Co-Signing Physician Notes I have personally seen and examined the patient with NEVA Topete on 03/02/20. Her note reflects my exam and findings. I agree with her impression and plan. Most c/w ischemic colitis. Conservative management. Jared Lundberg M.D. Review of Systems Review of Systems: ROS: Gen: + mild weakness, No fevers, + weight loss Eyes: No eye redness, or pain, no recent vision changes Resp: No SOB, no cough Cardio: No palpitations/irregular beats, no chest pain GI: As per HPI otherwise negative : Denies pain on urination Skin: No jaundice, itching or new rashes Physical Exam Constitutional: WD/WN, vitals as above Eyes: PERRL, conjunctivae normal, anicteric sclerae ENMT: external ear and nose normal, oropharynx normal Neck: trachea midline, no thyromegaly Respiratory: normal respiratory effort, lungs clear to auscultation Cardiovascular: RRR, no murmur, no edema Gastrointestinal (Abdomen): Inspection/Auscultation: abdomen normal to inspection and normal bowel sounds; abdomen not distended Percussion/Palpation: + abdomen tender (LLQ, improved compared to yesterday) and abdomen soft Musculoskeletal: no cyanosis or clubbing, extremities motor strength 5/5 Skin: no rashes, warm and dry Neurologic: PERRL, EOMI, accommodation nl, no face palsy, no dysarthria Psychiatric: Orientation: alert Insight: + poor insight Judgement: + poor judgement Lymphatic: no cervical or axillary lymphadenopathy Results & Data ([facility]) Vital Signs (Past 12 Hours) Vital Signs Temp Pulse Resp BP Pulse Ox 03/02/20 11:26 36.5 C 72 18 154/83 H 93 03/02/20 07:17 36.7 C 67 18 190/94 H 96 03/02/20 04:29 36.7 C 68 16 138/70 95 Laboratory Results WBC 9.3, H the 12.8, HCT 39, PLT 181, INR 1.1, NA 138, K3.5, BUN 12, CR 1.[address] with IV contrast 03/01/2020: 1. Interval development of moderate colonic wall thickening and mild pericolonic infiltration of the distal transverse colon, splenic flexure, descending colon, sigmoid colon and likely the rectum since CT of January 10, 2020. This represents a nonspecific colitis which may be infectious, ischemic or inflammatory in etiology. No free air or abscess. 2. Severe right hydronephrosis, improved since CT of January 10, 2020 following ureteral stent insertion. Multiple right ureteral calculi/fragments that measure up to 7 mm, as described above. Urothelial thickening and mild perinephric and periureteral infiltration. Bilateral nephrolithiasis. No left ureteral calculi. 3. Stable presacral infiltration/fluid since CT of January 10, 2020. This is likely postsurgical. Previous sigmoid resection. No bowel obstruction.
[2020-03-02] MEDS ORDERED: CALCIUM CARBONATE 500 MG CHEWABLE TAB PO PRN (15:06)
[2020-03-02] MEDS: cefTRIAXone SODIUM 1,000 MG in DEXTROSE 5% 50 ML IV SCH (15:23)
--- NOTE | 2020-03-02 17:04 | Hospitalist Progress Note ---
Date of Service March 02, 2020 Assessment & Plan (1) Rectal bleed: Rectal Bleeding Colitis H/O colon cancer 10 years prior with sigmoid resection and subsequent chemotherapy Intermittent Ibuprofen use --CT ABD: Interval development of moderate colonic wall thickening and mild pericolonic infiltration of the distal transverse colon, splenic flexure, descending colon, sigmoid colon and likely the rectum since CT of January 10, 2020. This represents a nonspecific colitis which may be infectious, ischemic or inflammatory in etiology. No free air or abscess. Severe right hydronephrosis, improved since CT of January 10, 2020 following ureteral stent insertion. Multiple right ureteral calculi/fragments that measure up to 7 mm, as described above. Urothelial thickening and mild perinephric and periureteral infiltration. Bilateral nephrolithiasis. No left ureteral calculi. Stable presacral in filtration/fluid since CT of January 10, 2020. This is likely postsurgical. Previous sigmoid resection. No bowel obstruction. --Continue IV Protonix --Monitor H&H and Transfuse PRBCs PRN --Continue Antibiotics for to complete 7-day course --Advance diet as tolerated --Outpatient colonoscopy --Stool studies if recurrence of diarrhea --Appreciate GI Input (2) Nonspecific colitis: As Above (3) Complicated UTI (urinary tract infection): (4) Right ureteral calculus: H/O Ureteral stones with recent right ureteral stent insertion by [facility] urology on 01/10/20. Completed course of postop Macrobid --CT abd/pelvis today with severe right hydronephrosis, improved since CT of January 10, 2020 following ureteral stent insertion. Multiple right ureteral calculi/fragments that measure up to 7 mm, as described above. Urothelial thickening and mild perinephric and periureteral infiltration. Bilateral nephrolithiasis. No left ureteral calculi --Urine culture: Moderate probable skin jeannie --On empiric antibiotics as above --Appreciate Urology Input --Will need ureteroscopy once cleared by GI (5) Hypertension: Continue atenolol, amlodipine, lisinopril Hydralazine PRN Monitor (6) Stage 3 chronic kidney disease: Baseline creatinine ~1.3/1.4. Received IV fluids Monitor BMP (7) CVA (cerebral vascular accident): H/o Right anterior occipital stroke in 10/2018 per record- residual "slowing" in general Not currently taking aspirin Continue lipitor (8) Anxiety: (9) Fibromyalgia: Continue venlafaxine DVT Px: SCDs Re: GI bleeding Code status: DNR/DNI Disposition PT/OT prior to discharge Admission and Anticipated Discharge Date Admission Date: March 01, 2020 Subjective Patient is seen and examined at bedside No bleeding issues since hospitalization History limited secondary to dementia States having nausea but no vomiting Mild abdominal pain Denies chest pain, shortness of breath, dizziness Offers no other complaints Review of Systems Review of Systems: All systems reviewed & are unremarkable except as noted in HPI & below Physical Exam Physical Exam: Physical Exam: Vitals signs as noted above General Appearance:Elderly, no apparent distress Head: normocephalic, Atraumatic Eyes: normal inspection, EOMI Neck: supple, Trachea midline Respiratory/Chest: Decreased breath sounds, CTA Cardiovascular: S1, S2, No murmur Abdomen/GI:Soft, mild LLQ tender, Bowel sounds present Extremities/Musculoskelatal:normal inspection, no edema Neurologic/Psych:grossly no focal neurological deficits Skin: normal color, warm Results & Data Results & Data ([facility]) Vital Signs (Past 12 Hours) Vital Signs Temp Pulse Pulse Resp BP Pulse Ox 03/02/20 16:00 71 03/02/20 15:32 36.8 C 75 21 169/93 H 94 03/02/20 11:26 36.5 C 72 18 154/83 H 93 03/02/20 07:17 36.7 C 67 18 190/94 H 96 Laboratory Results Short CBC 03/01/20 03/01/20 03/02/20 Range/Units 17:47 23:02 07:39 WBC Cancelled Hgb 12.3 12.2 Cancelled (12.0-16.0) g/dL Hct 38.4 37.3 Cancelled (37-47) % Plt Count Cancelled 03/02/20 Range/Units 08:22 WBC 9.38 Hgb 12.8 (12.0-16.0) g/dL Hct 39.0 (37-47) % Plt Count 181 BMP 03/02/20 07:39 Sodium 138 Potassium 3.5 D Chloride 111 H Carbon Dioxide 20 L BUN 12 D Creatinine 1.06 Glucose 94 Calcium 8.6
[2020-03-02] MEDS: PANTOprazole 40 MG in SYRINGE 0 ML IV SCH (21:01)
[2020-03-02] MEDS: ATORVASTATIN 20 MG TAB PO SCH (21:03)
[2020-03-02] MEDS: CYANOCOBALAMIN 500 MCG TABLET (VITAMIN B-12) PO SCH (21:04)
[2020-03-02] MEDS: lisinopriL 40 MG TAB PO SCH (21:04)
[2020-03-02] MEDS: ATENOLOL 50 MG TABLET PO SCH (21:04)
[2020-03-03] MEDS: metroNIDAZOLE 500 MG/100 ML BAG IV SCH ×3 (01:45→17:56)
[2020-03-03] MEDS: ACETAMINOPHEN 1000 MG/100 ML IV IV SCH ×3 (03:55→20:35)
[2020-03-03 07:18] LABS: Hematocrit (blood only) 38.1 % (37-47); Hemoglobin 12.6 g/dL (12.0-16.0); Mean Corpuscular Hemoglobin 29.6 pg (25-34); Mean Corpuscular Hgb Conc 33.1 g/dL (32-36); Mean Corpuscular Volume 89.6 fL (80-100); Mean Platelet Volume 9.9 fL (7.4-10.4); Platelet Count 207 K/uL (130-400); RDW Coefficient of Variation 15.3 % (11.5-14.5); Red Blood Count 4.25 M/uL (4.2-5.4); White Blood Count 7.27 K/uL (4.8-10.8)
[2020-03-03 07:42] LABS: BUN Creatinine Ratio 7.5 (10-20); Calcium 8.9 mg/dl (8.5-10.1); Creatinine Clr Calc Pharmacy 38.1 ml/min; Est GFR (African American) 54.3; Est GFR (Non-African American) 46.8; Magnesium 1.9 mg/dl (1.8-2.4); Potassium 3.4 mmol/L (3.5-5.1)
[2020-03-03] MEDS: VENLAFAXINE HCL 37.5 MG TAB PO SCH (07:52)
[2020-03-03] MEDS: PANTOprazole 40 MG in SYRINGE 0 ML IV SCH ×2 (07:53→20:34)
[2020-03-03] MEDS: AMLODIPINE BESYLATE 5 MG TAB PO SCH (07:53)
[2020-03-03] MEDS ORDERED: POTASSIUM CHLORIDE 20 MEQ TABCR PO ONE (09:42)
[2020-03-03] MEDS: cefTRIAXone SODIUM 1,000 MG in DEXTROSE 5% 50 ML IV SCH (14:42)
--- NOTE | 2020-03-03 15:19 | Urology Progress Note ---
Date of Service March 03, 2020 Assessment & Plan (1) Right ureteral calculus: From a Urology point of view, ok to discharge home. Pt will needs to have cysto, right uscope, laser litho, and stent exchage; however, this can be arranged as an outpatient. (2) Hydronephrosis: Subjective Pt improving overall. Min pain from stent. Increased urge and freq. Repeat CT scan showed severe hydro although improved from past imaging. Stones still in ureter along side stent. No fevers. No chills. Review of Systems Review of Systems: All systems reviewed & are unremarkable except as noted in HPI & below Physical Exam Constitutional: WD/WN, vitals as above Respiratory: normal respiratory effort, lungs clear to auscultation Cardiovascular: RRR, no murmur, no edema Skin: no rashes, warm and dry Results & Data Vital Signs (Past 12 Hours) Vital Signs Temp Pulse Pulse Resp BP Pulse Ox 03/03/20 11:28 73 18 147/82 H 93 03/03/20 07:48 66 03/03/20 07:29 36.9 C 66 18 154/90 H 94 03/03/20 04:00 36.7 C 68 18 151/79 H 95 PG Care Time/CCT Total # of Minutes Spent Total Time Spent with Patient: Total time spent is greater than 50% in coordination of care (as documented) at patient's floor/unit and/or counseling patient: 30 Coding Level of Care Code 07858 Subseq Hosp Care Lvl 3 Diagnoses Right ureteral calculus N20.1 Hydronephrosis N13.30
--- NOTE | 2020-03-03 16:52 | Hospitalist Progress Note ---
Date of Service March 03, 2020 Assessment & Plan (1) Rectal bleed: Rectal Bleeding Colitis H/O colon cancer 10 years prior with sigmoid resection and subsequent chemotherapy Intermittent Ibuprofen use --CT ABD: Interval development of moderate colonic wall thickening and mild pericolonic infiltration of the distal transverse colon, splenic flexure, descending colon, sigmoid colon and likely the rectum since CT of January 10, 2020. This represents a nonspecific colitis which may be infectious, ischemic or inflammatory in etiology. No free air or abscess. Severe right hydronephrosis, improved since CT of January 10, 2020 following ureteral stent insertion. Multiple right ureteral calculi/fragments that measure up to 7 mm, as described above. Urothelial thickening and mild perinephric and periureteral infiltration. Bilateral nephrolithiasis. No left ureteral calculi. Stable presacral i nfiltration/fluid since CT of January 10, 2020. This is likely postsurgical. Previous sigmoid resection. No bowel obstruction. --Continue IV Protonix --Monitor H&H and Transfuse PRBCs PRN --Continue Antibiotics for to complete 7-day course --Tolerated diet --Outpatient colonoscopy planned --Stool studies pending --Appreciate GI Input --Plan to transition to p.o. PPI, p.o. antibiotics and discharge tomorrow if hemoglobin remains stable (2) Nonspecific colitis: As Above (3) Complicated UTI (urinary tract infection): (4) Right ureteral calculus: H/O Ureteral stones with recent right ureteral stent insertion by [facility] urology on 01/10/20. Completed course of postop Macrobid --CT abd/pelvis today with severe right hydronephrosis, improved since CT of January 10, 2020 following ureteral stent insertion. Multiple right ureteral calculi/fragments that measure up to 7 mm, as described above. Urothelial thickening and mild perinephric and periureteral infiltration. Bilateral nephrolithiasis. No left ureteral calculi --Urine culture: Moderate probable skin jeannie --On empiric antibiotics as above --Appreciate Urology Input --Need ureteroscopy--recommended to be done as outpatient by urology (5) Hypertension: Continue atenolol, amlodipine, lisinopril Hydralazine PRN Monitor (6) Stage 3 chronic kidney disease: Baseline creatinine ~1.3/1.4. Received IV fluids Monitor BMP (7) CVA (cerebral vascular accident): H/o Right anterior occipital stroke in 10/2018 per record- residual "slowing" in general Not currently taking aspirin Continue lipitor (8) Anxiety: (9) Fibromyalgia: Continue venlafaxine DVT Px: SCDs Re: GI bleeding Code status: DNR/DNI Disposition PT/OT prior to discharge Admission and Anticipated Discharge Date Admission Date: March 01, 2020 Subjective Patient is seen and examined at bedside Offers no complaints today Denies abd pain, nausea, bleeding issues History limited secondary to dementia Also denies chest pain, shortness of breath, dizziness Discussed with Urology today Hb stable Review of Systems Review of Systems: All systems reviewed & are unremarkable except as noted in HPI & below Physical Exam Physical Exam: Physical Exam: Vitals signs as noted above General Appearance:Elderly, no apparent distress Head: normocephalic, Atraumatic Eyes: normal inspection, EOMI Neck: supple, Trachea midline Respiratory/Chest: Decreased breath sounds, CTA Cardiovascular: S1, S2, No murmur Abdomen/GI:Soft, non tender, Bowel sounds present Extremities/Musculoskelatal:normal inspection, no edema Neurologic/Psych:grossly no focal neurological deficits Skin: normal color, warm Results & Data Results & Data ([facility]) Vital Signs (Past 12 Hours) Vital Signs Temp Pulse Pulse Resp BP Pulse Ox 03/03/20 15:18 36.6 C 69 18 154/83 H 94 03/03/20 11:28 73 18 147/82 H 93 03/03/20 07:48 66 03/03/20 07:29 36.9 C 66 18 154/90 H 94 Laboratory Results Short CBC 03/03/20 Range/Units 07:03 WBC 7.27 (4.8-10.8) K/uL Hgb 12.6 (12.0-16.0) g/dL Hct 38.1 (37-47) % Plt Count 207 (130-400) K/uL BMP 03/03/20 07:03 Sodium 139 Potassium 3.4 L Chloride 109 H Carbon Dioxide 25 BUN 9 Creatinine 1.13 Glucose 112 H Calcium 8.9
[2020-03-03] MEDS: lisinopriL 40 MG TAB PO SCH (20:34)
[2020-03-03] MEDS: ATORVASTATIN 20 MG TAB PO SCH (20:34)
[2020-03-03] MEDS: ATENOLOL 50 MG TABLET PO SCH (20:34)
[2020-03-03] MEDS: CYANOCOBALAMIN 500 MCG TABLET (VITAMIN B-12) PO SCH (20:34)
[2020-03-04] MEDS: metroNIDAZOLE 500 MG/100 ML BAG IV SCH ×3 (01:56→17:47)
[2020-03-04] MEDS: TRAMADOL HCL 50 MG TABLET PO PRN ×2 (02:41→08:41)
[2020-03-04] MEDS: ACETAMINOPHEN 1000 MG/100 ML IV IV SCH (06:08)
[2020-03-04 08:16] LABS: Hematocrit (blood only) 36.6 % (37-47); Hemoglobin 11.9 g/dL (12.0-16.0)
[2020-03-04] MEDS: PANTOprazole 40 MG in SYRINGE 0 ML IV SCH (08:38)
[2020-03-04] MEDS: VENLAFAXINE HCL 37.5 MG TAB PO SCH (08:39)
[2020-03-04] MEDS: AMLODIPINE BESYLATE 5 MG TAB PO SCH (08:39)
[2020-03-04 08:53] LABS: BUN Creatinine Ratio 8.6 (10-20); Calcium 8.8 mg/dl (8.5-10.1); Creatinine Clr Calc Pharmacy 40.7 ml/min; Est GFR (African American) 58.7; Est GFR (Non-African American) 50.6; Magnesium 1.8 mg/dl (1.8-2.4); Potassium 3.6 mmol/L (3.5-5.1)
[2020-03-04] MEDS: cefTRIAXone SODIUM 1,000 MG in DEXTROSE 5% 50 ML IV SCH (13:52)
--- NOTE | 2020-03-04 16:10 | Hospitalist Progress Note ---
Date of Service March 04, 2020 Assessment & Plan (1) Rectal bleed: Rectal Bleeding Colitis H/O colon cancer 10 years prior with sigmoid resection and subsequent chemotherapy Intermittent Ibuprofen use --CT ABD: Interval development of moderate colonic wall thickening and mild pericolonic infiltration of the distal transverse colon, splenic flexure, descending colon, sigmoid colon and likely the rectum since CT of January 10, 2020. This represents a nonspecific colitis which may be infectious, ischemic or inflammatory in etiology. No free air or abscess. Severe right hydronephrosis, improved since CT of January 10, 2020 following ureteral stent insertion. Multiple right ureteral calculi/fragments that measure up to 7 mm, as described above. Urothelial thickening and mild perinephric and periureteral infiltration. Bilateral nephrolithiasis. No left ureteral calculi. Stable presacral i nfiltration/fluid since CT of January 10, 2020. This is likely postsurgical. Previous sigmoid resection. No bowel obstruction. --Stool studies: Negative --Continue PO Protonix --Monitor H&H and Transfuse PRBCs PRN --Continue Antibiotics for to complete 7-day course --Tolerated diet --Outpatient colonoscopy planned --Appreciate GI Input --Needs follow up with GI upon discharge (2) Nonspecific colitis: As Above (3) Complicated UTI (urinary tract infection): (4) Right ureteral calculus: H/O Ureteral stones with recent right ureteral stent insertion by [facility] urology on 01/10/20. Completed course of postop Macrobid --CT abd/pelvis today with severe right hydronephrosis, improved since CT of January 10, 2020 following ureteral stent insertion. Multiple right ureteral calculi/fragments that measure up to 7 mm, as described above. Urothelial thickening and mild perinephric and periureteral infiltration. Bilateral nephrolithiasis. No left ureteral calculi --Urine culture: Moderate probable skin jeannie --On empiric antibiotics as above --Appreciate Urology Input --Need ureteroscopy--recommended to be done as outpatient by urology (5) Hypertension: Continue atenolol, amlodipine, lisinopril Hydralazine PRN Monitor (6) Stage 3 chronic kidney disease: Baseline creatinine ~1.3/1.4. Received IV fluids Monitor BMP (7) CVA (cerebral vascular accident): H/o Right anterior occipital stroke in 10/2018 per record- residual "slowing" in general Not currently taking aspirin Continue lipitor (8) Anxiety: (9) Fibromyalgia: Continue venlafaxine DVT Px: SCDs Re: GI bleeding Code status: DNR/DNI Disposition PT/OT prior to discharge Admission and Anticipated Discharge Date Admission Date: March 01, 2020 Subjective Patient is seen and examined at bedside Poorly slept overnight due to abdominal pain Abdominal pain is controlled today No recurrence of bleeding Stool cultures negative Diarrhea improving Eager to get discharged Discussed with patient's daughter today Limited history secondary to dementia Denies chest pain, SOB, dizziness, nausea, vomiting Review of Systems Review of Systems: All systems reviewed & are unremarkable except as noted in HPI & below Physical Exam Physical Exam: Physical Exam: Vitals signs as noted above General Appearance:Elderly, no apparent distress Head: normocephalic, Atraumatic Eyes: normal inspection, EOMI Neck: supple, Trachea midline Respiratory/Chest: Decreased breath sounds, CTA Cardiovascular: S1, S2, No murmur Abdomen/GI:Soft, mild tender, Bowel sounds present Extremities/Musculoskelatal:normal inspection, no edema Neurologic/Psych:grossly no focal neurological deficits Skin: normal color, warm Results & Data Results & Data ([facility]) Vital Signs (Past 12 Hours) Vital Signs Temp Pulse Pulse Resp BP Pulse Ox 03/04/20 15:19 36.8 C 72 18 144/73 H 95 03/04/20 15:05 68 03/04/20 11:16 36.7 C 68 18 157/87 H 95 03/04/20 07:24 68 03/04/20 07:23 36.8 C 66 18 167/82 H 94 Laboratory Results Short CBC 03/04/20 Range/Units 07:40 Hgb 11.9 L (12.0-16.0) g/dL Hct 36.6 L (37-47) % BMP 03/04/20 07:40 Sodium 140 Potassium 3.6 Chloride 110 H Carbon Dioxide 23 BUN 9 Creatinine 1.06 Glucose 112 H Calcium 8.8
[2020-03-04] MEDS: PANTOprazole 40 MG TAB PO SCH (20:40)
[2020-03-04] MEDS: ATENOLOL 50 MG TABLET PO SCH (20:41)
[2020-03-04] MEDS: ATORVASTATIN 20 MG TAB PO SCH (20:41)
[2020-03-04] MEDS: CYANOCOBALAMIN 500 MCG TABLET (VITAMIN B-12) PO SCH (20:41)
[2020-03-04] MEDS: lisinopriL 40 MG TAB PO SCH (20:42)
[2020-03-05] MEDS: metroNIDAZOLE 500 MG/100 ML BAG IV SCH ×2 (01:22→08:40)
[2020-03-05] MEDS: VENLAFAXINE HCL 37.5 MG TAB PO SCH (08:41)
[2020-03-05] MEDS: PANTOprazole 40 MG TAB PO SCH (08:41)
[2020-03-05] MEDS: AMLODIPINE BESYLATE 5 MG TAB PO SCH (08:41)
[2020-03-05 09:13] LABS: Hemoglobin 12.6 g/dL (12.0-16.0)
[2020-03-05] MEDS ORDERED: cefUROXime axetil 500 MG TAB PO SCH (09:30)
[2020-03-05 09:32] LABS: BUN Creatinine Ratio 7.7 (10-20); Creatinine Clr Calc Pharmacy 36.5 ml/min; Magnesium 1.8 mg/dl (1.8-2.4); Potassium 3.8 mmol/L (3.5-5.1)
[2020-03-05] MEDS ORDERED: metroNIDAZOLE 500 MG TAB PO SCH (14:00)
--- NOTE | 2020-03-05 14:02 | Hospitalist Progress Note ---
Date of Service March 05, 2020 Assessment & Plan (1) Rectal bleed: Rectal Bleeding Colitis H/O colon cancer 10 years prior with sigmoid resection and subsequent chemotherapy Intermittent Ibuprofen use --CT ABD: Interval development of moderate colonic wall thickening and mild pericolonic infiltration of the distal transverse colon, splenic flexure, descending colon, sigmoid colon and likely the rectum since CT of January 10, 2020. This represents a nonspecific colitis which may be infectious, ischemic or inflammatory in etiology. No free air or abscess. Severe right hydronephrosis, improved since CT of January 10, 2020 following ureteral stent insertion. Multiple right ureteral calculi/fragments that measure up to 7 mm, as described above. Urothelial thickening and mild perinephric and periureteral infiltration. Bilateral nephrolithiasis. No left ureteral calculi. Stable presacral i nfiltration/fluid since CT of January 10, 2020. This is likely postsurgical. Previous sigmoid resection. No bowel obstruction. --Stool studies: Negative --Continue PO Protonix --Monitor H&H and Transfuse PRBCs PRN --Continue Antibiotics for to complete 7-day course --Tolerated diet --Outpatient colonoscopy planned --Appreciate GI Input --Needs follow up with GI upon discharge --Continue current management (2) Nonspecific colitis: As Above (3) Complicated UTI (urinary tract infection): (4) Right ureteral calculus: H/O Ureteral stones with recent right ureteral stent [place] [facility] [place] [place]. Completed course of postop Macrobid --CT abd/pelvis today with severe right hydronephrosis, improved since CT of January 10, 2020 following ureteral stent insertion. Multiple right ureteral calculi/fragments that measure up to 7 mm, as described above. Urothelial thickening and mild perinephric and periureteral infiltration. Bilateral nephrolithiasis. No left ureteral calculi --Urine culture: Moderate probable skin jeannie --On empiric antibiotics as above --Appreciate Urology Input --Need ureteroscopy--recommended to be done as outpatient by urology (5) Hypertension: Continue atenolol, amlodipine, lisinopril Hydralazine PRN Monitor (6) Stage 3 chronic kidney disease: Baseline creatinine ~1.3/1.4. Received IV fluids Monitor BMP (7) CVA (cerebral vascular accident): H/o Right anterior occipital stroke in 10/2018 per record- residual "slowing" in general Not currently taking aspirin Continue lipitor (8) Anxiety: (9) Fibromyalgia: Continue venlafaxine DVT Px: SCDs Re: GI bleeding Code status: DNR/DNI Disposition Plan to discharge home today Admission and Anticipated Discharge Date Admission Date: March 01, 2020 Subjective Patient is seen and examined at bedside Doing well today Diarrhea improved No new complaints No significant abdominal pain No recurrence of bleeding Limited history secondary to dementia Denies chest pain, SOB, dizziness, nausea, vomiting Review of Systems Review of Systems: All systems reviewed & are unremarkable except as noted in HPI & below Physical Exam Physical Exam: Physical Exam: Vitals signs as noted above General Appearance:Elderly, no apparent distress Head: normocephalic, Atraumatic Eyes: normal inspection, EOMI Neck: supple, Trachea midline Respiratory/Chest: Decreased breath sounds, CTA Cardiovascular: S1, S2, No murmur Abdomen/GI:Soft, non tender, Bowel sounds present Extremities/Musculoskelatal:normal inspection, no edema Neurologic/Psych:grossly no focal neurological deficits Skin: normal color, warm Results & Data Results & Data ([facility]) Vital Signs (Past 12 Hours) Vital Signs Temp Pulse Pulse Resp BP BP Pulse Ox 03/05/20 11:36 36.7 C 70 18 182/88 H 96 03/05/20 10:15 66 03/05/20 07:46 36.8 C 70 18 161/90 H 94 03/05/20 04:00 36.8 C 72 18 178/84 H 95 Laboratory Results Short CBC 03/05/20 Range/Units 08:40 Hgb 12.6 (12.0-16.0) g/dL Hct 39.0 (37-47) % BMP 03/05/20 08:40 Sodium 139 Potassium 3.8 Chloride 109 H Carbon Dioxide 24 BUN 9 Creatinine 1.19 Glucose 187 H Calcium 9.0
--- NOTE | 2020-03-05 14:22 | Discharge Summary ---
Date of Service March 05, 2020 Admission HPI Per Admitting Provider This is a 79-year-old female with PMH of hypertension, CKD 3, ureteral stones s/p right stent placement by urology last month, GERD, fibromyalgia, unspecified dementia, history of CVA without residual deficit, history of rectal cancer and other medical problems as below who presents with rectal bleeding since this morning. Patient felt nauseous with a few episodes of brown diarrhea last evening. States that diarrhea is somewhat normal for her, so she was not concerned. This morning, however, she awoke to bright red blood soaking the bottom of her depends. When she used the bathroom, she continued to have bright red blood output into the toilet bowl. Denies any clots. Endorses associated diffuse cramping abdominal pain with some bloating. No fever or chills. Denies any lightheadedness, visual changes, chest pain or palpitations. No shortness of breath. Does have history of colon cancer approximately 10 years ago that was treated in [place] with partial colectomy and chemo. Denies any recurren ce or issues since then. Reported weight loss to ED providers but then unsure to me. Per chart review, patient has lost approximately 13 pounds since November. Denies any dysuria, pyuria, melena or constipation. History of frequent Motrin use but then switch to extra strength Tylenol a few months before resuming it this past week. Has taken 600 mg 4 times over the last 6 days. Currently smokes 1/2 ppd. Admission Exam Per Admitting Provider General Appearance: WD/WN, vitals as above, NAD, sitting up in bed, anxious Head: normocephalic, atraumatic Eyes: normal inspection, PERRL, conjunctivae normal, anicteric sclerae ENT: external ear and nose normal, oropharynx normal Neck: trachea midline, no thyromegaly normal visual inspection Respiratory: normal respiratory effort, lungs clear to auscultation, no wheeze, rales, rhonchi. No accessory muscle use Cardiovascular: regular rate, rhythm, no murmur appreciated, normal peripheral pulses. Vessels: no JVD Chest: normal inspection of chest Abdomen/GI: normal bowel sounds, soft, TTP of LLQ and mid-abdomen, non- distended, no hepatosplenomegaly Extremities/Musculoskeletal: no cyanosis or clubbing, extremities motor strength 5/5 Neurologic: PERRL, EOMI, accommodation nl, no face palsy, no dysarthria, CN's II-XI intact bilaterally and moves all extremities Psychiatric: A+Ox3 but underlying dementia, euthymic affect Skin: no rashes, normal color, warm/dry Principal Diagnosis Bleeding per rectum Colitis Right ureteral calculus Right hydronephrosis Discharge Data Allergies Allergy/AdvReac Type Severity Reaction Status Date / Time No Known Allergies Allergy Unknown Unverified 03/01/20 09:01 Consultations 03/01/20 10:55 ED Decision to Admit Stat 03/01/20 17:15 Consult Case Management - Discharge Planning Routine Consult Gastroenterology Routine Consult Urology Routine Procedures Performed CT ABD: Interval development of moderate colonic wall thickening and mild pericolonic infiltration of the distal transverse colon, splenic flexure, descending colon, sigmoid colon and likely the rectum since CT of January 10, 2020. This represents a nonspecific colitis which may be infectious, ischemic or inflammatory in etiology. No free air or abscess. Severe right hydronephrosis, improved since CT of January 10, 2020 following ureteral stent insertion. Multiple right ureteral calculi/fragments that measure up to 7 mm, as described above. Urothelial thickening and mild perinephric and periureteral infiltration. Bilateral nephrolithiasis. No left ureteral calculi. Stable presacral infiltration/fluid since CT of January 10, 2020. This is likely postsurgical. Previous sigmoid resection. No bowel obstruction. Ordered Studies 03/01/20 08:51 CT abd pelvis IV con only Stat Hospital Course (1) Rectal bleed: Rectal Bleeding Colitis H/O colon cancer 10 years prior with sigmoid resection and subsequent chemotherapy Intermittent Ibuprofen use --CT ABD: Interval development of moderate colonic wall thickening and mild pericolonic infiltration of the distal transverse colon, splenic flexure, descending colon, sigmoid colon and likely the rectum since CT of January 10, 2020. This represents a nonspecific colitis which may be infectious, ischemic or inflammatory in etiology. No free air or abscess. Severe right hydronephrosis, improved since CT of January 10, 2020 following ureteral stent insertion. Multiple right ureteral calculi/fragments that measure up to 7 mm, as described above. Urothelial thickening and mild perinephric and periureteral infiltration. Bilateral nephrolithiasis. No left ureteral calculi. Stable presacral infiltration/fluid since CT of January 10, 2020. This is likely postsurgical. Previous sigmoid resection. No bowel obstruction. --Stool studies: Negative --Continue PO Protonix --Monitor H&H and Transfuse PRBCs PRN --Continue Antibiotics for to complete 7-day course --Tolerated diet --Outpatient colonoscopy planned --Appreciate GI Input --Needs follow up with GI upon discharge --Continue current management (2) Nonspecific colitis: As Above (3) Complicated UTI (urinary tract infection): (4) Right ureteral calculus: H/O Ureteral stones with recent right ureteral stent insertion by [facility] urology on 01/10/20. Completed course of postop Macrobid --CT abd/pelvis today with severe right hydronephrosis, improved since CT of January 10, 2020 following ureteral stent insertion. Multiple right ureteral calculi/fragments that measure up to 7 mm, as described above. Urothelial thickening and mild perinephric and periureteral infiltration. Bilateral nephrolithiasis. No left ureteral calculi --Urine culture: Moderate probable skin jeannie --On empiric antibiotics as above --Appreciate Urology Input --Need ureteroscopy--recommended to be done as outpatient by urology (5) Hypertension: Continue atenolol, amlodipine, lisinopril Hydralazine PRN Monitor (6) Stage 3 chronic kidney disease: Baseline creatinine ~1.3/1.4. Received IV fluids Monitor BMP (7) CVA (cerebral vascular accident): H/o Right anterior occipital stroke in 10/2018 per record- residual "slowing" in general Not currently taking aspirin Continue lipitor (8) Anxiety: (9) Fibromyalgia: Continue venlafaxine DVT Px: SCDs Re: GI bleeding Code status: DNR/DNI Disposition Plan to discharge home today Total Time Total Time Spent Total Time Spent (In Minutes): 38 minutes Total Time Includes: Examination of the Patient, Discharge Planning, Medication Reconciliation, Communication With Other Providers and Other Discharge Plan Discharge Items Patient Disposition: Home - Self-Care Reason For Visit: RECTAL BLEED,ABD PAIN Discharge Diagnosis: Bleeding per rectum Colitis Right ureteral calculus Right hydronephrosis Condition on Discharge: Fair Activity: Resume your previous activity Exercise/Sports: Gradually increase as tolerated Non-emergency contact: Primary Care Provider, [employer] and Urologist Call non-emergency contact if: you have any medication questions, your symptoms worsen, your pain is not controlled, your pain is worsening, your pain is unusual for you, your pain is concerning for you and you have a fever Follow-up/Referrals: Jaden Jones MD [Primary Care Provider] - 03/09/20 11:20 am (03/09/2020 11:20 AM Provider Tammy Jones MD Department Internal Medicine [facility] ) Diet: Heart Healthy Addtl Attending Provider Instructions: Follow-up with your primary care physician Dr. Jones on March 09, 2020 at 11:20 AM as scheduled Follow-up with your soft top installer Dr. Lundberg for colonoscopy as outpatient. Please call for appointment Follow up with your Urologist Dr.Stephen Molina/ for Ureteroscopy as outpatient Complete the antibiotic course as prescribed Seek immediate medical attention if your symptoms reoccur or worsen Pending Studies at Discharge: No Stand-Alone Forms: My [employer], Smoking Cessation Medications and DC Order Prescriptions: New cefuroxime axetil 500 mg Tablet 500 mg PO BID Qty: 7 RF: 0 metronidazole [Flagyl] 500 mg tablet 500 mg PO Q8H Qty: 9 RF: 0 Continued Lactobacillus acidophilus [Acidophilus] Capsule 5,000 mmu cells PO DAILY Qty: 30 RF: 0 atorvastatin 20 mg tablet 20 mg PO HS RF: 0 cyanocobalamin (vitamin B-12) 1,000 mcg Tablet 1,000 mcg PO HS RF: 0 venlafaxine 37.5 mg tablet 37.5 mg PO DAILY RF: 0 lisinopril 40 mg tablet 40 mg PO HS RF: 0 omeprazole 40 mg Capsule,Delayed Release(Dr/Ec) 40 mg PO DAILY PRN (Reason: Acid Reflux) RF: 0 atenolol 100 mg tablet 100 mg PO HS RF: 0 ibuprofen [Motrin IB] 200 mg Capsule 200 mg PO Q4H PRN (Reason: Pain) RF: 0 amlodipine 5 mg tablet 5 mg PO HS RF: 0 docusate sodium 100 mg Capsule 100 mg PO HS PRN (Reason: Constipation) RF: 0 gabapentin 300 mg Capsule 300 mg PO BID RF: 0 albuterol sulfate 90 mcg/actuation Hfa Aerosol Inhaler 1 inh INHALATION QID PRN (Reason: Shortness Of Breath Or Wheezing) RF: 0 acetaminophen 500 mg Tablet 1,000 mg PO HS PRN (Reason: Pain) RF: 0 Discharge Orders: Discharge Order (Routine); Ordered 03/05/20 Ordered By: Jose Tolbert Admission Data Admit Date/Time: 03/01/20 11:57 Attending Provider: Jose Tolbert Admit Provider: Jose Tolbert Primary Care Provider: Jaden Jones Other Providers: Jose Tolbert ; Jared Lundberg ; Mainor Carrasco Other Interventions: Discharge Summary Assessment (RN) Last Done: 03/05/20 15:08 DC Date/Time DO NOT enter until pt leaves facility: 03/05/20 15:51
== END 2020-03-05 15:51 | disposition home or self-care (01) | DRG 394 ==
LOC: ED 08:00 → 2W 11:57

== ENCOUNTER 2020-03-18 21:21 | Observation (INO) ==
[2020-03-18] MEDS ORDERED: DiphenhydrAMINE HCL 50 MG/ML VIAL IV STA (21:49)
[2020-03-18] MEDS ORDERED: PROCHLORPERAZINE 1 ML IV ONE (21:49)
[2020-03-18] MEDS ORDERED: ACETAMINOPHEN 1,000 MG/100 ML VIAL IV STA (21:49)
[2020-03-18] MEDS ORDERED: FAMOTIDINE 20MG/5ML IV PUSH IV STA (21:49)
[2020-03-18] MEDS ORDERED: SODIUM CHLORIDE 0.9% 1000ML 1,000 ML IV ONE (21:49)
[2020-03-18 22:37] LABS: Basophils # (auto) 0.01 K/uL (0-0.2); Basophils % (auto) 0.1 %; Eosinophils # (auto) 0.09 K/uL (0-0.5); Eosinophils % (auto) 0.6 %; Hemoglobin 13.6 g/dL (12.0-16.0); Immature Granulocytes # (auto) 0.04 K/uL (0.00-0.02); Immature Granulocytes % (auto) 0.3 %; Lymphocytes # (auto) 0.47 K/uL (1.2-3.4); Lymphocytes % (auto) 3.3 %; Mean Corpuscular Hemoglobin 29.9 pg (25-34); Mean Corpuscular Hgb Conc 32.4 g/dL (32-36); Mean Corpuscular Volume 92.3 fL (80-100); Mean Platelet Volume 10.9 fL (7.4-10.4); Monocytes # (auto) 0.17 K/uL (0.11-0.59); Monocytes % (auto) 1.2 %; Neutrophils # (auto) 13.48 K/uL (1.4-6.5); Neutrophils % (auto) 94.5 %; Platelet Count 221 K/uL (130-400); RDW Standard Deviation 50.9 fL (36.4-46.3); Red Blood Count 4.55 M/uL (4.2-5.4); White Blood Count 14.26 K/uL (4.8-10.8)
[2020-03-18 22:58] LABS: Alanine Aminotransferase 10 U/L (12-78); Albumin Globulin Ratio 0.9 (0.9-2); Alkaline Phosphatase 102 U/L (45-117); Aspartate Aminotransferase 16 U/L (15-37); BUN Creatinine Ratio 12.6 (10-20); Bilirubin,Total 0.6 mg/dl (0.2-1); Blood Urea Nitrogen 19 mg/dl (7-18); Calcium 8.1 mg/dl (8.5-10.1); Carbon Dioxide 19 mmol/L (21-32); Chloride 114 mmol/L (98-107); Creatinine Clr Calc Pharmacy 28.2 ml/min; Est GFR (African American) 37.6; Est GFR (Non-African American) 32.5; Globulin 3.4 gm/dl (2.5-4.0); Glucose 136 mg/dl (70-99); Lipase 175 U/L (73-393); Magnesium 1.8 mg/dl (1.8-2.4); Phosphorus 4.8 mg/dl (2.5-4.9); Potassium 4.2 mmol/L (3.5-5.1); Sodium 142 mmol/L (136-145); Total Protein 6.4 gm/dl (6.4-8.2)
[2020-03-18] MEDS ORDERED: IOVERSOL 100ml IV ONE (23:15)
[2020-03-18 23:49] LABS: Appearance Urine Cloudy (Clear); Bilirubin Urine Negative (Negative); Blood Urine 3+ (Negative); Color Urine Yellow; Glucose Urine UA Negative (Negative); Ketones Urine Negative (Negative); Leukocyte Esterase Urine Trace (Negative); Nitrite Urine Negative (Negative); Protein Urine 3+ (Negative); Urobilinogen Urine Negative (Negative); pH Urine 6.5 (4.5-7.5)
[2020-03-18 23:57] LABS: Bacteria Urine 1+ (Negative); RBC Urine >30 /hpf (0-4)
--- NOTE | 2020-03-19 00:19 | Emergency Department Note ---
Impression & Plan Left sided abdominal pain, Diarrhea, Colitis, S/P ureteral stent placement ED Provider Note NAME: OCTAVIO LAM AGE: 79 SEX: F ARRIVES VIA: Ambulance INFORMANT: Patient, ED PROVIDER(S): Juancarlos Ball MD CHIEF COMPLAINT: Abdominal pain PLAN: Disposition: Admit MEDICAL DECISION MAKING: The patient is a pleasant 79-year-old woman with a past medical history of colitis, CKD, hypertension with recent history of obstructing ureteral stone status post right ureteral stent who presents emergency department accompanied by her daughter after developing acute onset nausea, abdominal pain and recurrent frequent loose stools which is in the setting of having a diagnosis of colitis in the past month that had improved. Prior to her onset of symptoms tonight she has been feeling well and they deny any fevers, chills, cough, congestion, chest pain, shortness of breath. Arrival patient is uncomfortable but no acute distress, afebrile stable vital signs. Upon arrival she did have a large loose stools multiple times in the emergency department. She appears clinically dry. She is a mildly distended abdomen but is soft with mild left- sided tenderness without guarding or rebound. WBC 14.2, nonspecific. H/H platelets within normal limits. Chemistry with bicarb of 19 and creatinine of 1.5 consistent with the patient's clinically dry appearance. LFTs unremarkable. Lipase is not elevated. UA demonstrates WBCs, RBCs and bacteria with 5-10 epithelial cells. Per preliminary [facility] read, CT abdomen pelvis demonstrates evidence of colitis. Additionally findings of persistent up improved hydronephrosis in addition to "small amount of gas outside of the ureter and in the right retroperitoneum", which is of unclear significance. Given patient's pain is left sided. Patient was re-evaluated and was feeling improved after IVF hydration, apap, diphenhydramine, pepcid, and compazine. Abdomen continues without right sided tenderness. Mild left sided tenderness persists but improved. Cdiff negative. Given patient's symptoms and CT findings reasonable to admit for further management. Patient and daughter are agreeable. Will defer decision for ABX to admitting team. Case was discussed with Dr. Pozo, [facility] hospitalist, who will evaluate the patient for admission. Triage Nursing notes reviewed and agree them. Prior medical records reviewed Vital Signs: reviewed and remarkable for no significant abnormalities Differential diagnosis: Appendicitis, ovarian cyst, ovarian torsion, ectopic , TOA, PID, infections, diverticulitis, UTI, obstruction, mesenteric ischemia, aortic pathology, inflammatory bowel disease, renal colic, PUD, pancreatitis, biliary pathology, hernia, volvulus, constipation, as well as other pathologies. ER treatment provided: See below. Diagnostics interpreted by me: Cardiac Monitoring: An order for continuous cardiac monitoring was placed and demonstrated NSR, 78 bpm, no ectopy. Laboratory studies: See below Imaging studies: Preliminary Findings Only See Final Report For Complete Findings CT ABDOMEN & PELVIS With Contrast: Status post placement of a right double-J ureteral stent. The proximal coil of the ureteral stent is in the dilated extrarenal pelvis. Small amount of gas outside of the ureter and in the right retroperitoneum is concerning for ureteral injury. Recommend correlation with surgical details. Small amount of fat stranding of fluid within the retroperitoneum. The previously seen ureteral stones are no longer identified. Moderate right hydronephrosis and hydroureter has improved but persistent and raises the possibility of ureteral stent malfu nction. Urothelial thickening and enhancement of the right renal pelvis and ureter could be a normal finding for postsurgical changes or could indicate ascending urinary tract infection. Tiny nonobstructing stones are noted in both kidneys. Status post distal colon resection. Fluid distention of the colon with mild mucosal enhancement suggests infectious colitis. Fluid distended distal esophagus suggests gastroesophageal reflux. Small hiatal hernia. Multilevel degenerative changes of the spine. Radiologist: Yoselin Erwin MD Study ready at 23:29 and initial results transmitted at 00:04 Consultation(s): Case was discussed with Dr. Pozo, [facility] hospitalist, who will evaluate the patient for admission. HPI: The patient is a pleasant 79-year-old woman with a past medical history of colitis, CKD, hypertension with recent history of obstructing ureteral stone status post right ureteral stent who presents emergency department accompanied by her daughter after developing acute onset nausea, abdominal pain and recurrent frequent loose stools which is in the setting of having a diagnosis of colitis in the past month that had improved. Prior to her onset of symptoms tonight she has been feeling well and they deny any fevers, chills, cough, congestion, chest pain, shortness of breath. ROS: See above HPI for pertinent positives & negatives. A total of 10 systems reviewed and were otherwise negative. PAST MEDICAL HISTORY:See Below PAST SURGICAL HISTORY:See Below FAMILY HISTORY:See Below SOCIAL HISTORY:See Below HOME MEDICATIONS:See Below ALLERGIES:See Below VITALS:See Below PHYSICAL EXAMINATION: GENERAL: Awake, alert, uncomfortable-appearing, in no distress HENT: Normocephalic, atraumatic. Oropharynx with dry mucous membranes and otherwise unremarkable. EYES: Normal conjunctiva. Sclera non-icteric. NECK: Supple. No nuchal rigidity. FROM. No JVD. RESPIRATORY: Clear to auscultation. CARDIAC: Regular rate, normal rhythm. Extremities warm and well perfused. Pulses equal. ABDOMEN: Mild distention but soft. Mild left-sided abdominal tenderness to palpation. No rebound or guarding. No masses. RECTAL: Deferred. MUSCULOSKELETAL: Chest examination reveals no tenderness. The back is symmetrical on inspection without obvious abnormality. There is no CVA tenderness to palpation. No joint edema. LOWER EXTREMITIES: Calves are equal size bilaterally and non-tender. No edema. No discoloration. NEURO: Normal sensorium. No sensory or motor deficits noted. SKIN: No rash or jaundice noted. Juancarlos Ball MD Past Med/Surg History Medical History Anxiety and depression Breast cancer pre-cancerous/+ right lumpectomy- RUE limb restriction Colitis Tx'ed during recent admission to [facility] Colon cancer s/p colon resection, chemo/xrt (2012) CVA (cerebral vascular accident) 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- residual "slowing" in general Dementia mild per daughter GERD (gastroesophageal reflux disease) Hyperlipidemia Hypertension Kidney stones Obesity Osteoarthritis Poor historian Mild dementia per hospital records Stage 3 chronic kidney disease Surgical History History of cataract surgery ? 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 Beliefs That Will Affect Care: None marital status: Current Living Situation: Family Current Living Situation Comment: LIVES WITH DAUGHTER current occupational status: retired Feels Safe at Home: Yes Allergies Allergies Allergy/AdvReac Type Severity Reaction Status Date / Time No Known Allergies Allergy Unknown Verified 03/18/20 22:54 Home Meds Home Medications Medication Instructions Recorded Confirmed acetaminophen 1,000 mg PO Q8H PRN 03/01/20 03/18/20 amlodipine 5 mg PO HS 03/01/20 03/18/20 atenolol 100 mg PO HS 03/01/20 03/18/20 atorvastatin 20 mg PO HS 03/01/20 03/18/20 docusate sodium 100 mg PO HS PRN 03/01/20 03/18/20 gabapentin 300 mg PO HS PRN 03/01/20 03/18/20 lisinopril 40 mg PO HS 03/01/20 03/18/20 venlafaxine 37.5 mg PO PM 03/01/20 03/18/20 famotidine [Pepcid] 20 mg PO DAILY PRN 03/08/20 03/18/20 Previous Rx's Medication Instructions Recorded Lactobacillus acidophilus 5,000 mmu cells PO DAILY #30 cap 01/30/20 ciprofloxacin HCl [Cipro] 500 mg PO Q12H #10 tab 03/15/20 oxycodone-acetaminophen [Percocet] 1 tab PO Q8H PRN #7 tab 03/15/20 Results & Data (ED) Vital Signs Vital Signs - 24 hr 03/18/20 21:27 03/18/20 21:29 03/18/20 21:45 Temperature 36.7 C Temperature Source Oral Pulse Rate 68 70 84 Pulse Rate [Bilateral Apical] Pulse Rate from SpO2 Sensor 68 70 Respiratory Rate 20 22 22 Respiratory Effort / Characteristics Non-Labored Respiratory Depth Normal Blood Pressure 125/72 128/67 Blood Pressure [Left Arm] Blood Pressure Mean 84 87 Blood Pressure Mean [Left Arm] Pulse Oximetry 100 98 Oxygen Delivery Method Nasal Cannula Oxygen Flow Rate 2 Sepsis Recent Fever Within 48 Hours No Sepsis New/Unexplained Change in Mental Status No Sepsis Action Taken by Nursing No Action Required 03/18/20 21:52 03/18/20 22:00 03/18/20 22:30 Temperature Temperature Source Pulse Rate 84 80 Pulse Rate [Bilateral Apical] Pulse Rate from SpO2 Sensor Respiratory Rate 20 22 Respiratory Effort / Characteristics Respiratory Depth Blood Pressure Blood Pressure [Left Arm] Blood Pressure Mean Blood Pressure Mean [Left Arm] Pulse Oximetry 98 Oxygen Delivery Method Nasal Cannula Oxygen Flow Rate 2 Sepsis Recent Fever Within 48 Hours Sepsis New/Unexplained Change in Mental Status Sepsis Action Taken by Nursing 03/18/20 23:08 03/18/20 23:49 03/19/20 01:06 Temperature Temperature Source Pulse Rate Pulse Rate [Bilateral Apical] 74 78 73 Pulse Rate from SpO2 Sensor Respiratory Rate 18 20 20 Respiratory Effort / Characteristics Respiratory Depth Blood Pressure Blood Pressure [Left Arm] 122/70 121/70 109/69 Blood Pressure Mean Blood Pressure Mean [Left Arm] 87 87 82 Pulse Oximetry 96 95 94 Oxygen Delivery Method Room Air Room Air Room Air Oxygen Flow Rate Sepsis Recent Fever Within 48 Hours Sepsis New/Unexplained Change in Mental Status Sepsis Action Taken by Nursing 03/19/20 02:26 03/19/20 03:46 Temperature Temperature Source Pulse Rate Pulse Rate [Bilateral Apical] 76 77 Pulse Rate from SpO2 Sensor Respiratory Rate 20 20 Respiratory Effort / Characteristics Respiratory Depth Blood Pressure Blood Pressure [Left Arm] 125/99 125/99 Blood Pressure Mean Blood Pressure Mean [Left Arm] 107 107 Pulse Oximetry 96 96 Oxygen Delivery Method Room Air Room Air Oxygen Flow Rate Sepsis Recent Fever Within 48 Hours Sepsis New/Unexplained Change in Mental Status Sepsis Action Taken by Nursing Laboratory Data Attestation: I reviewed the patient's lab results. Result diagrams: 03/18/20 22:29 03/18/20 22:29 Lab Results 03/18/20 03/18/20 03/18/20 Range/Units 22:29 22:29 23:40 WBC 14.26 H (4.8-10.8) K/uL RBC 4.55 (4.2-5.4) M/uL Hgb 13.6 (12.0-16.0) g/dL Hct 42.0 (37-47) % MCV 92.3 (80-100) fL MCH 29.9 (25-34) pg MCHC 32.4 (32-36) g/dL RDW Std Deviation 50.9 H (36.4-46.3) fL RDW Coeff of Radha 15.0 H (11.5-14.5) % Plt Count 221 (130-400) K/uL MPV 10.9 H (7.4-10.4) fL Immature Gran % (Auto) 0.3 % Neut % (Auto) 94.5 % Lymph % (Auto) 3.3 % [place] % (Auto) 1.2 % Eos % (Auto) 0.6 % Baso % (Auto) 0.1 % Neut # (Auto) 13.48 H (1.4-6.5) K/uL Lymph # (Auto) 0.47 L (1.2-3.4) K/uL [place] # (Auto) 0.17 (0.11-0.59) K/uL Eos # (Auto) 0.09 (0-0.5) K/uL Baso # (Auto) 0.01 (0-0.2) K/uL Immature Gran # (Auto) 0.04 H (0.00-0.02) K/uL Sodium 142 (136-145) mmol/L Potassium 4.2 (3.5-5.1) mmol/L Chloride 114 H (98-107) mmol/L Carbon Dioxide 19 L (21-32) mmol/L Anion Gap 9.0 (3-11) BUN 19 H (7-18) mg/dl Creatinine 1.53 H (0.6-1.2) mg/dl Est Cr Clr Drug Dosing 28.2 ml/min Est GFR ( Amer) 37.6 Est GFR (Non-Af Amer) 32.5 BUN/Creatinine Ratio 12.6 (10-20) Glucose 136 H (70-99) mg/dl Calcium 8.1 L (8.5-10.1) mg/dl Phosphorus 4.8 (2.5-4.9) mg/dl Magnesium 1.8 (1.8-2.4) mg/dl Total Bilirubin 0.6 (0.2-1) mg/dl Direct Bilirubin TNP AST 16 (15-37) U/L ALT 10 L (12-78) U/L Alkaline Phosphatase 102 (45-117) U/L Total Protein 6.4 (6.4-8.2) gm/dl Albumin 3.0 L (3.4-5.0) gm/dl Globulin 3.4 (2.5-4.0) gm/dl Albumin/Globulin Ratio 0.9 (0.9-2) Lipase 175 (73-393) U/L Specimen Hemolysis Urine Color Yellow Urine Appearance Cloudy A (Clear) Urine pH 6.5 (4.5-7.5) Ur Specific [place] 1.020 (1.000-1.030) Urine Protein 3+ H (Negative) Urine Glucose (UA) Negative (Negative) Urine Ketones Negative (Negative) Urine Blood 3+ H (Negative) Urine Nitrite Negative (Negative) Urine Bilirubin Negative (Negative) Urine Urobilinogen Negative (Negative) Ur Leukocyte Esterase Trace H (Negative) Urine RBC >30 H (0-4) /hpf Urine WBC 5-10 H (0-5) /hpf Ur Epithelial Cells 5-10 H (0-5) /lpf Urine Bacteria 1+ H (Negative) Stl C. diff Tox B Gene (Neg) 03/19/20 Range/Units 00:30 WBC (4.8-10.8) K/uL RBC (4.2-5.4) M/uL Hgb (12.0-16.0) g/dL Hct (37-47) % MCV (80-100) fL MCH (25-34) pg MCHC (32-36) g/dL RDW Std Deviation (36.4-46.3) fL RDW Coeff of Radha (11.5-14.5) % Plt Count (130-400) K/uL MPV (7.4-10.4) fL Immature Gran % (Auto) % Neut % (Auto) % Lymph % (Auto) % [place] % (Auto) % Eos % (Auto) % Baso % (Auto) % Neut # (Auto) (1.4-6.5) K/uL Lymph # (Auto) (1.2-3.4) K/uL [place] # (Auto) (0.11-0.59) K/uL Eos # (Auto) (0-0.5) K/uL Baso # (Auto) (0-0.2) K/uL Immature Gran # (Auto) (0.00-0.02) K/uL Sodium (136-145) mmol/L Potassium (3.5-5.1) mmol/L Chloride (98-107) mmol/L Carbon Dioxide (21-32) mmol/L Anion Gap (3-11) BUN (7-18) mg/dl Creatinine (0.6-1.2) mg/dl Est Cr Clr Drug Dosing ml/min Est GFR ( Amer) Est GFR (Non-Af Amer) BUN/Creatinine Ratio (10-20) Glucose (70-99) mg/dl Calcium (8.5-10.1) mg/dl Phosphorus (2.5-4.9) mg/dl Magnesium (1.8-2.4) mg/dl Total Bilirubin (0.2-1) mg/dl Direct Bilirubin AST (15-37) U/L ALT (12-78) U/L Alkaline Phosphatase (45-117) U/L Total Protein (6.4-8.2) gm/dl Albumin (3.4-5.0) gm/dl Globulin (2.5-4.0) gm/dl Albumin/Globulin Ratio (0.9-2) Lipase (73-393) U/L Specimen Hemolysis Urine Color Urine Appearance (Clear) Urine pH (4.5-7.5) Ur Specific [place] (1.000-1.030) Urine Protein (Negative) Urine Glucose (UA) (Negative) Urine Ketones (Negative) Urine Blood (Negative) Urine Nitrite (Negative) Urine Bilirubin (Negative) Urine Urobilinogen (Negative) Ur Leukocyte Esterase (Negative) Urine RBC (0-4) /hpf Urine WBC (0-5) /hpf Ur Epithelial Cells (0-5) /lpf Urine Bacteria (Negative) Stl C. diff Tox B Gene Negative Cdiff Gene (Neg) Administered Medications Discontinued Medications Diphenhydramine HCl (Diphenhydramine Hcl 50 Mg/Ml Vial) 12.5 mg IV NOW STA Stop: 03/18/20 21:50 Last Admin: 03/18/20 22:00 Dose: 12.5 mg Documented by: [id number] Famotidine (Famotidine 20mg/5ml Iv Push) 20 mg IV ONE STA Stop: 03/18/20 21:50 Last Admin: 03/18/20 22:02 Dose: 20 mg Documented by: [id number] Sodium Chloride (Nss 1000ml) 1,000 mls @ 999 mls/hr IV .Q1H1M ONE Stop: 03/18/20 22:49 Last Infusion: 08/16/20 23:13 Dose: 0 mls/hr Documented by: [id number] Admin: 03/18/20 22:02 Dose: 999 mls/hr Documented by: [id number] Prochlorperazine (Compazine) 1 mls @ 1 mls/min IV ONE ONE Stop: 03/18/20 21:50 Last Admin: 03/18/20 22:00 Dose: 1 mls/min Documented by: [id number] Acetaminophen (Ofirmev) 1,000 mg in 100 mls @ 400 mls/hr IV NOW STA Stop: 03/18/20 22:03 Last Infusion: 03/18/20 22:35 Dose: 0 mls/hr Documented by: [id number] Admin: 03/18/20 22:02 Dose: 400 mls/hr Documented by: [id number] Ioversol (Ioversol 100ml) 93 ml IV ONCE ONE Stop: 03/18/20 23:16 Last Admin: 03/18/20 23:15 Dose: 93 ml Documented by: [id number] Blood Pressure Blood Pressure Findings: Normal blood pressure Blood Pressure Disposition: did not require urgent referral Discharge Plan Visit Data Chief Complaint: Abdominal Pain Stated Complaint: ABDOMINAL PAIN ED Provider: Juancarlos Ball Discharge Problem: Left sided abdominal pain, Diarrhea, Colitis, S/P ureteral stent placement Forms Stand Alone Forms: [facility] Prescriptions Prescriptions: No Action Lactobacillus acidophilus [Acidophilus] Capsule 5,000 mmu cells PO DAILY Qty: 30 RF: 0 famotidine [Pepcid] 20 mg Tablet 20 mg PO DAILY PRN (Reason: Indigestion) RF: 0 ciprofloxacin HCl [Cipro] 500 mg tablet 500 mg PO Q12H Qty: 10 RF: 0 oxycodone-acetaminophen [Percocet] 7.5-325 mg tablet 1 tab PO Q8H PRN (Reason: pain) Qty: 7 RF: 0 atorvastatin 20 mg tablet 20 mg PO HS RF: 0 venlafaxine 37.5 mg tablet 37.5 mg PO PM RF: 0 lisinopril 40 mg tablet 40 mg PO HS RF: 0 atenolol 100 mg tablet 100 mg PO HS RF: 0 amlodipine 5 mg tablet 5 mg PO HS RF: 0 docusate sodium 100 mg Capsule 100 mg PO HS PRN (Reason: Constipation) RF: 0 gabapentin 300 mg Capsule 300 mg PO HS PRN (Reason: Pain) RF: 0 acetaminophen 500 mg Tablet 1,000 mg PO Q8H PRN (Reason: Pain) RF: 0 Referrals Referrals: Jaden Jones MD [Primary Care Provider] -
--- NOTE | 2020-03-19 02:23 | History & Physical Report ---
Date of Service March 19, 2020 Assessment & Plan (1) ARF (acute renal failure): ARF on CKD secondary to gastroenteritis/colitis (antibiotic associated diarrhea) Stool C. difficile negative Patient nontoxic. Right retroperitoneal gas concerning for ureteral injury on initial CT read Recent urologic procedure Finding does not correlate with daughter's account of patient's symptoms and clinical exam. chronic diastolic heart failure (EF 55%, TTE 2018), patient slightly on the dry side hypertension, stable hx CVA dementia R breast cancer status post surgery colon cancer status post surgery Hyperglycemia rule out DM Post tobacco abuse OBS GMF Monitor creatinine response to IVF, hold lisinopril until creatinine back to baseline Supportive management for diarrheal illness Follow official CT abdomen pelvis read N.p.o. until CT abdomen pelvis final read results available. Check hemoglobin A1c DVT prophylaxis with SCDs RE recent L GIB DNR as per daughter, . Alma Lowery. She requests updates from providers through [phone]. Text document was generated using [employer] voice recognition software. It may contain grammatical or spelling errors. Kindly contact undersigned for clarification of any documentation item in question. History of Present Illness Chief Complaint: Abdominal pain as per family Primary Care Provider: Jaden Jones MD History obtained from patient, family, and records. History limited from patient secondary to dementia. Medical history significant for chronic diastolic heart failure (EF 55%, TTE 2018), hypertension, CVA, dementia, right breast cancer status post surgery, colon cancer status post surgery, CRI (baseline creatinine 1.3), urolithiasis status post recent stent exchange, past tobacco abuse. Recent confinement 2 weeks ago for LGIB/colitis. Stool studies negative. Severe right hydronephrosis, mild perinephric/periureteral infiltration/multiple right ureteral calculi/fragments noted on CT. Urology recommended outpatient ureteroscopy. 4 days ago, patient underwent cystoscopy, right ureteral dilatation, stone extraction, and stent exchange outpatient by [facility]. Patient discharged on 5-day Cipro course. As per daughter, last night patient had sudden onset of left flank/abdominal pain associated with nausea. At the ER, multiple nonbloody bowel movements noted. Patient currently denies chest pain, S OB, abdominal/flank pain/hematuria. She has no recollection of events prior to ER arrival. 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 [employer], lives with daughter Allergies Allergy/AdvReac Type Severity Reaction Status Date / Time No Known Allergies Allergy Unknown Verified 03/18/20 22:54 Home Medications Home Medications Medication Instructions Recorded Confirmed Type Lactobacillus acidophilus 5,000 mmu cells PO DAILY #30 cap 01/30/20 03/18/20 Rx acetaminophen 1,000 mg PO Q8H PRN 03/01/20 03/18/20 History amlodipine 5 mg PO HS 03/01/20 03/18/20 History atenolol 100 mg PO HS 03/01/20 03/18/20 History atorvastatin 20 mg PO HS 03/01/20 03/18/20 History docusate sodium 100 mg PO HS PRN 03/01/20 03/18/20 History gabapentin 300 mg PO HS PRN 03/01/20 03/18/20 History lisinopril 40 mg PO HS 03/01/20 03/18/20 History venlafaxine 37.5 mg PO PM 03/01/20 03/18/20 History famotidine [Pepcid] 20 mg PO DAILY PRN 03/08/20 03/18/20 History ciprofloxacin HCl [Cipro] 500 mg PO Q12H #10 tab 03/15/20 03/18/20 Rx oxycodone-acetaminophen [Percocet] 1 tab PO Q8H PRN #7 tab 03/15/20 03/18/20 Rx Past Med/Surg History Medical History (Updated 03/19/20 @ 03:30 by George Pozo MD) Anxiety and depression Breast cancer pre-cancerous/+ right lumpectomy- RUE limb restriction Colitis Tx'ed during recent admission to [facility] Colon cancer s/p colon resection, chemo/xrt (2012) CVA (cerebral vascular accident) 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- residual "slowing" in general Dementia mild per daughter GERD (gastroesophageal reflux disease) Hyperlipidemia Hypertension Kidney stones Obesity Osteoarthritis Poor historian Mild dementia per hospital records Stage 3 chronic kidney disease Surgical History History of cataract surgery ? SIDE History of colon surgery r/t colon cancer History of colonoscopy History of cystoscopy WITH STENT History of partial hysterectomy History of tooth extraction History of total knee replacement LEFT Hx of lumpectomy right Family History Family/Other Prostate cancer Grandmother (Paternal) Family history of diabetes mellitus Social History Smoking Status: Current every day smoker packs per day: 1; Cigarettes Per Day: 10; Second Hand Exposure: Yes; Hx Alcohol Use: No Hx Substance Use: No Preferred Language: Mongolian Communication Ability: Effective Qm Consultant Required: No Beliefs That Will Affect Care: None marital status: Current Living Situation: Family Current Living Situation Comment: LIVES WITH DAUGHTER current occupational status: retired Feels Safe at Home: Yes Review of Systems Review of Systems: Could not be reliably obtained Physical Exam Physical Exam: GENERAL: Comfortable, demented, pleasant, no respiratory distress SKIN: Normal color, warm HEENT: [place] palpebral conjunctivae, no ptosis, dry buccal mucosa NECK : Supple, no tenderness CHEST : CTA, no tenderness HEART : RRR, no obvious murmurs ABDOMEN: Some distention, nontender EXTREMITIES : Minimal LE swelling, no LE tenderness, no other conspicuous deformities noted NEUROLOGIC : Coherent, demented, chronic R facial asymmetry, no other gross focality Results & Data Results & Data ([facility]) Vital Signs (Past 12 Hours) Vital Signs Temp Pulse Pulse Resp BP BP Pulse Ox 03/19/20 01:06 73 20 109/69 94 03/18/20 23:49 78 20 121/70 95 03/18/20 23:08 74 18 122/70 96 03/18/20 22:30 80 22 03/18/20 22:00 84 20 03/18/20 21:52 98 03/18/20 21:45 84 22 03/18/20 21:29 36.7 C 70 22 128/67 98 03/18/20 21:27 68 20 125/72 100 Laboratory Results Laboratory Results WBC 14.26 K/uL (4.8-10.8) H 03/18/20 22:29 RBC 4.55 M/uL (4.2-5.4) 03/18/20: Hgb 13.6 g/dL (12.0-16.0) 03/18/20: Hct 42.0 % (37-47) 03/18/20: MCV 92.3 fL (80-100) 03/18/20: MCH 29.9 pg (25-34) 03/18/20: MCHC 32.4 g/dL (32-36) 03/18/20: RDW Std Deviation 50.9 fL (36.4-46.3) H 03/18/20: RDW Coeff of Radha 15.0 % (11.5-14.5) H 03/18/20: Plt Count 221 K/uL (130-400) 03/18/20: MPV 10.9 fL (7.4-10.4) H 03/18/20: Immature Gran % (Auto) 0.3 % 03/18/20: Neut % (Auto) 94.5 % 03/18/20: Lymph % (Auto) 3.3 % 03/18/20: [place] % (Auto) 1.2 % 03/18/20: Eos % (Auto) 0.6 % 03/18/20: Baso % (Auto) 0.1 % 03/18/20: Neut # (Auto) 13.48 K/uL (1.4-6.5) H 03/18/20: Lymph # (Auto) 0.47 K/uL (1.2-3.4) L 03/18/20: [place] # (Auto) 0.17 K/uL (0.11-0.59) 03/18/20: Eos # (Auto) 0.09 K/uL (0-0.5) 03/18/20: Baso # (Auto) 0.01 K/uL (0-0.2) 03/18/20: Immature Gran # (Auto) 0.04 K/uL (0.00-0.02) H 03/18/20: Sodium 142 mmol/L (136-145) 03/18/20: Potassium 4.2 mmol/L (3.5-5.1) 03/18/20 22:29 Chloride 114 mmol/L (98-107) H 03/18/20 22:29 Carbon Dioxide 19 mmol/L (21-32) L 03/18/20 22: Anion Gap 9.0 (3-11) 03/18/20 22:29 BUN 19 mg/dl (7-18) H 03/18/20 22:29 Creatinine 1.53 mg/dl (0.6-1.2) H 03/18/20 22:29 Est Cr Clr Drug Dosing 28.2 ml/min 03/18/20 22:29 Est GFR ( Amer) 37.6 03/18/20 22: Est GFR (Non-Af Amer) 32.5 03/18/20 22: BUN/Creatinine Ratio 12.6 (10-20) 03/18/20 22: Glucose 136 mg/dl (70-99) H 03/18/20 22:29 Calcium 8.1 mg/dl (8.5-10.1) L 03/18/20: Phosphorus 4.8 mg/dl (2.5-4.9) 03/18/20: Magnesium 1.8 mg/dl (1.8-2.4) 03/18/20: Total Bilirubin 0.6 mg/dl (0.2-1) 03/18/20 22: Direct Bilirubin TNP 03/18/20:29 AST 16 U/L (15-37) 03/18/20: ALT 10 U/L (12-78) L 03/18/20 22:29 Alkaline Phosphatase 102 U/L (45-117) 03/18/20 22:29 Total Protein 6.4 gm/dl (6.4-8.2) 03/18/20 22: Albumin 3.0 gm/dl (3.4-5.0) L 03/18/20: Globulin 3.4 gm/dl (2.5-4.0) 03/18/20 22:29 Albumin/Globulin Ratio 0.9 (0.9-2) 03/18/20 22: Lipase 175 U/L (73-393) 03/18/20 22:29 Specimen Hemolysis 03/18/20 22:29 Urine Color Yellow 03/18/20 23:40 Urine Appearance Cloudy (Clear) A 03/18/20 23:40 Urine pH 6.5 (4.5-7.5) 03/18/20 23:40 Ur Specific [place] 1.020 (1.000-1.030) 03/18/20 23:40 Urine Protein 3+ (Negative) H 03/18/20 23:40 Urine Glucose (UA) Negative (Negative) 03/18/20 23:40 Urine Ketones Negative (Negative) 03/18/20 23:40 Urine Blood 3+ (Negative) H 03/18/20 23:40 Urine Nitrite Negative (Negative) 03/18/20 23:40 Urine Bilirubin Negative (Negative) 03/18/20 23:40 Urine Urobilinogen Negative (Negative) 03/18/20 23:40 Ur Leukocyte Esterase Trace (Negative) H 03/18/20 23:40 Urine RBC >30 /hpf (0-4) H 03/18/20 23:40 Urine WBC 5-10 /hpf (0-5) H 03/18/20 23:40 Ur Epithelial Cells 5-10 /lpf (0-5) H 03/18/20 23:40 Urine Bacteria 1+ (Negative) H 03/18/20 23:40 Stl C. diff Tox B Gene Negative Cdiff Gene (Neg) 03/19/20 00:[address] abdomen pelvis initial read status post right double-J ureteral stent. Small amount of gas outside the ureter in the right retroperitoneum concerning for ureteral injury. Small amount of fat stranding or fluid within the retroperitoneum. Moderate right hydronephrosis and ureter have improved but p ersistent, possible ureteral stent malfunction. Postop change versus ascending UTI. Status post distal colon resection. Infectious colitis. GERD. Chest x-ray as per my interpretation: Cardiomegaly, atelectasis, elevated right hemidiaphragm
[2020-03-19] MEDS ORDERED: SODIUM CHLORIDE 0.45 % 1,000 ML IV ONE (02:26)
[2020-03-19] MEDS ORDERED: FAMOTIDINE 20 MG TAB PO PRN (04:45)
[2020-03-19] MEDS ORDERED: PROMETHAZINE HCL 12.5 MG in SODIUM CHLORIDE 0.9% 50 ML IV PRN (04:45)
[2020-03-19] MEDS ORDERED: ACETAMINOPHEN 325 MG TAB PO PRN (04:45)
[2020-03-19] MEDS ORDERED: OXYCODONE HCL IR 5 MG TAB (IMMEDIATE RELEASE) PO PRN (04:45)
[2020-03-19] MEDS: SODIUM CHLORIDE 0.45 % 1,000 ML IV SCH ×2 (06:31→08:49)
[2020-03-19 06:56] LABS: Estimated Average Glucose 94 mg/dl; Hemoglobin A1C 4.9 % (4.5-5.6)
--- NOTE | 2020-03-19 07:27 | XRay Report ---
XR chest 1V portable CLINICAL HISTORY: renal failure COMPARISON STUDY: 02/09/2020 FINDINGS: The heart is mildly enlarged. There is aortic tortuosity/ectasia. There is no lobar consoli dation. There are no significant pleural effusions. There is mild interstitial thickening.[Surgical c lips project over the right axillary region. IMPRESSION: Cardiomegaly and mild interstitial thickening. No evidence of overt failure. No evidence of focal pulmonary consolidation ACT 112: Negative or not required by law. Electronically signed by: Darren Townsend M.D. 03/19/2020 7:26 AM
--- NOTE | 2020-03-19 07:55 | CT Scan Report ---
CT SCAN OF THE ABDOMEN AND PELVIS WITH IV CONTRAST CLINICAL HISTORY: Generalized abdominal pain. Nausea and vomiting. Diarrhea. COMPARISON STUDY: Abdominal CT dated 03/01/2020. TECHNIQUE: Following the IV administration of 93 cc of Optiray 320, CT scan of the abdomen and pelvi s is performed from the lung bases to the proximal femora. Images are reviewed in the axial, sagittal , and coronal planes. IV contrast was administered without complication. A dose lowering technique wa s utilized adhering to the principles of ALARA. The examination is modestly degraded by motion artifa ct. CT DOSE: 520.31 mGy.cm FINDINGS: Lung bases: The heart is normal in size and without pericardial effusion. There are scattered coronar y artery calcifications. The lung bases are clear noting bibasilar scarring/atelectasis. There is a s mall hiatal hernia. Fluid fills the distal esophagus. Liver: The contrast-enhanced liver is normal in size, contour, and attenuation. There is no intrahepa tic biliary ductal dilatation. The hepatic veins and portal veins are patent. Gallbladder: Unremarkable. Spleen: Normal in size and attenuation. Pancreas: Moderately atrophic and grossly unremarkable. Adrenal glands: Unremarkable. Kidneys: The contrast enhanced kidneys demonstrate cortical atrophy, right side greater than left. A right ureteral stent is in appropriate position. There is significant right urothelial thickening and enhancement with periureteric and right-sided perinephric stranding. Moderate to severe right-sided hydronephrosis persists. A small focus of gas is present within the right renal pelvis. No calculi ar e identified in the right ureter along the course of the stent. There is a punctate nonobstructing ri ght renal calculus. A 3 mm nonobstructing calculus is seen in the left upper pole. No left-sided hydr onephrosis is seen. The kidneys enhance symmetrically. Abdominal vasculature: The abdominal aorta is normal in course and caliber noting mild atheroscleroti c calcification. Bowel: There is postoperative change from lower anterior resection. No bowel obstruction is seen. The re is mild wall thickening with mucosal hyperemia and pericolonic inflammation involving the left col on. This extends from the mid transverse colon to the rectum. Liquid stool is seen throughout the ent mackenzie colon. The appendix is well-visualized and normal. Peritoneum: No intraperitoneal free air is seen. There are small foci of gas in the right retroperito neum adjacent to the right ureter. There is no abdominal ascites. Lymphadenopathy: None. Pelvic viscera: The bladder is normal as visualized, and contains the distal end of a right ureteral stent. The uterus is surgically absent. No adnexal lesion is seen. Skeletal structures: The skeletal structures are osteopenic. There is moderate lumbosacral spondylosi s. No lytic or blastic lesions are seen. IMPRESSION: 1. Findings are consistent with a nonspecific colitis as detailed above, likely on an infectious or i nflammatory basis. Clinical correlation will be required. 2. A right ureteral stent is unchanged in position. No calcifications are seen along the course of th e stent. 3. There is moderate to severe right-sided hydronephrosis, similar to previous. 4. There is significant urothelial thickening and enhancement throughout the right renal pelvis and t he right ureter with surrounding perinephric and periureteric stranding. Correlate clinically and ur inalysis for evidence of superimposed urinary tract infection. 5. There is a small focus of gas within the right renal pelvis, as well as right-sided retroperitonea l gas along the course of the ureter. This could be related to recent instrumentation and possibly ur eteral injury. Clinical correlation will be required. 6. Small hiatal hernia with fluid filling the distal esophagus. Note that this may place the patient at risk for aspiration. 7. Bilateral nephrolithiasis. 8. Additional findings as above. ACT 112: Negative or not required by law. Electronically signed by: Gregg Spaulding M.D. 03/19/2020 7:53 AM
[2020-03-19] MEDS: ATENOLOL 50 MG TABLET PO SCH (08:28)
[2020-03-19] MEDS ORDERED: CONSULT PHARMACY SCH (09:00)
[2020-03-19] MEDS ORDERED: SODIUM CHLORIDE 0.45 % 1,000 ML IV SCH (14:55)
--- NOTE | 2020-03-19 15:57 | Hospitalist Progress Note ---
Date of Service March 19, 2020 Assessment & Plan (1) ARF (acute renal failure): CKD stage 3 Mostly related to diarrhea Creatinine on admission 1.5 with baseline [address] abd/pelvis showed no acute finding Continue to hold lisinopril for now Continue monitor BMP Will avoid nephrotoxic agents Nonspecific colitis: CT abd/pelvis done in the ER showed no bowel obstruction is seen. There is mild wall thickening with mucosal hyperemia and pericolonic inflammation involving the left colon. This extends from the mid transverse colon to the rectum. Liquid stool is seen throughout the entire colon Just completed a course of antibiotic Stools for C diff negative Diet advanced to full liquid On last admission GI planned for outpatient colonoscopy at the end of April as per Daughter Might consider GI evaluation if symptoms continue or worsening Right ureteral calculus: S/P Cystoscopy, Right Ureteronephroscopy, Retrograde Pyelogram, Right Ureteral Dilation, laser incision of stricture, Laser Destruction and basket Extraction of Stone, Stent Exchange performed on 03/[address] abd/pel;vis showed a right ureteral stent is unchanged in position. No calcifications are seen along the course of the stent. There is moderate to severe right-sided hydronephrosis, similar to previous. There is significant urothelial thickening and enhancement throughout the right renal pelvis and the right ureter with surrounding perinephric and periureteric stranding. There is a small focus of gas within the right renal pelvis, as well as right-sided retroperitoneal gas along the course of the ureter. This could be related to recent instrumentation and possibly ureteral injury. Clinical correlation will be required. Urine cx pending Will hold on antibiotic for now Continue monitor Hypertension: BP elevated Continue atenolol, amlodipine Continue to hold lisinopril Will add Hydralazine PRN Continue monitor BS CVA (cerebral vascular accident): H/o Right anterior occipital stroke in 10/2018 per record- residual "slowing" in general Not currently taking aspirin (recently admitting for GI bleed) Continue lipitor Anxiety: Fibromyalgia: Continue venlafaxine DVT Px: SCDs due to recent admission for GI bleeding Code status: DNR/DNI Disposition Updated provided to daughter Ms. Alma Lowery. She requests updates from providers through [phone]. Admission and Anticipated Discharge Date Admission Date: March 19, 2020 Subjective Pt was seen and examined Lying in bed with no distress and confused Seems comfortable and denies any pain Spoke to daughter and said that pt is confused as baseline with changing of environment Physical Exam Physical Exam: General- Confused Head- atraumatic Eyes- PERRL, EOMI, ENT- oropharynx clear Neck- supple, no JVD Lungs- clear to auscultation Heart- regular rhythm; no murmur Abdomen- normal bowel sounds, soft, nontender Extremities- no calf tenderness Neuro- alert, awake PERRL, EOMI; no facial palsy; no dysarthria Skin- warm & dry Results & Data Results & Data ([facility]) Vital Signs (Past 12 Hours) Vital Signs Temp Pulse Resp BP Pulse Ox 03/19/20 15:13 36.8 C 89 16 159/85 H 95 03/19/20 13:36 94 03/19/20 07:10 37.2 C 81 17 157/90 H 96 03/19/20 04:40 36.9 C 82 18 141/80 H 94
[2020-03-19] MEDS ORDERED: VENLAFAXINE HCL 37.5 MG TAB PO SCH (21:00)
[2020-03-19] MEDS ORDERED: AMLODIPINE BESYLATE 5 MG TAB PO SCH (21:00)
[2020-03-19] MEDS ORDERED: ATORVASTATIN 20 MG TAB PO SCH (21:00)
[2020-03-19 21:56] LABS: Basophils # (auto) 0.01 K/uL (0-0.2); Basophils % (auto) 0.1 %; Hematocrit (blood only) 36.1 % (37-47); Hemoglobin 11.8 g/dL (12.0-16.0); Immature Granulocytes # (auto) 0.02 K/uL (0.00-0.02); Immature Granulocytes % (auto) 0.2 %; Lymphocytes # (auto) 0.63 K/uL (1.2-3.4); Lymphocytes % (auto) 6.2 %; Mean Corpuscular Hemoglobin 29.6 pg (25-34); Mean Corpuscular Hgb Conc 32.7 g/dL (32-36); Mean Corpuscular Volume 90.7 fL (80-100); Mean Platelet Volume 10.4 fL (7.4-10.4); Monocytes # (auto) 0.92 K/uL (0.11-0.59); Neutrophils # (auto) 8.63 K/uL (1.4-6.5); Neutrophils % (auto) 84.5 %; Platelet Count 164 K/uL (130-400); RDW Coefficient of Variation 15.1 % (11.5-14.5); RDW Standard Deviation 50.1 fL (36.4-46.3); Red Blood Count 3.98 M/uL (4.2-5.4); White Blood Count 10.21 K/uL (4.8-10.8)
[2020-03-19 22:17] LABS: BUN Creatinine Ratio 10.4 (10-20); Calcium 8.6 mg/dl (8.5-10.1); Creatinine Clr Calc Pharmacy 35.8 ml/min; Est GFR (African American) 50.5; Est GFR (Non-African American) 43.6
[2020-03-19] MEDS ORDERED: POTASSIUM CHLORIDE PWD 20 MEQ PACK PO STA (22:44)
[2020-03-19] MEDS ORDERED: MAGNESIUM SULFATE / D5W 1 GM/100 ML BAG IV ONE (22:45)
[2020-03-19 23:05] LABS: Magnesium 1.8 mg/dl (1.8-2.4)
[2020-03-20 06:17] LABS: Basophils # (auto) 0.03 K/uL (0-0.2); Basophils % (auto) 0.4 %; Eosinophils # (auto) 0.02 K/uL (0-0.5); Eosinophils % (auto) 0.2 %; Hematocrit (blood only) 33.5 % (37-47); Hemoglobin 11.1 g/dL (12.0-16.0); Immature Granulocytes # (auto) 0.01 K/uL (0.00-0.02); Immature Granulocytes % (auto) 0.1 %; Lymphocytes # (auto) 0.63 K/uL (1.2-3.4); Lymphocytes % (auto) 7.5 %; Mean Corpuscular Hgb Conc 33.1 g/dL (32-36); Mean Corpuscular Volume 90.5 fL (80-100); Mean Platelet Volume 10.7 fL (7.4-10.4); Monocytes # (auto) 0.98 K/uL (0.11-0.59); Monocytes % (auto) 11.6 %; Neutrophils # (auto) 6.77 K/uL (1.4-6.5); Neutrophils % (auto) 80.2 %; Platelet Count 165 K/uL (130-400); RDW Coefficient of Variation 15.2 % (11.5-14.5); RDW Standard Deviation 50.2 fL (36.4-46.3); White Blood Count 8.44 K/uL (4.8-10.8)
[2020-03-20 06:54] LABS: BUN Creatinine Ratio 14.1 (10-20); Calcium 7.8 mg/dl (8.5-10.1); Creatinine Clr Calc Pharmacy 44.3 ml/min; Est GFR (African American) 65.3; Est GFR (Non-African American) 56.3; Potassium 3.6 mmol/L (3.5-5.1)
[2020-03-20] MEDS: ATENOLOL 50 MG TABLET PO SCH (08:08)
--- NOTE | 2020-03-20 18:37 | Hospitalist Progress Note ---
Date of Service March 20, 2020 Assessment & Plan (1) ARF (acute renal failure): CKD stage 3 Mostly related to diarrhea Creatinine on admission 1.5 with baseline around 1.[address] abd/pelvis showed no acute finding Lisinopril on hold, will resume on discharge Continue monitor BMP Continue to avoid nephrotoxic agents Nonspecific colitis: CT abd/pelvis done in the ER showed no bowel obstruction is seen. There is mild wall thickening with mucosal hyperemia and pericolonic inflammation involving the left colon. This extends from the mid transverse colon to the rectum. Liquid stool is seen throughout the entire colon Just completed a course of antibiotic Stools for C diff negative On last admission GI planned for outpatient colonoscopy at the end of April as per Daughter Case discussed with GI that agreed about no additional abx since pt recently completed course of abx for the nonspecific colitis Tolerated low fiber diet GI recommended to keep the appointment for the colonoscopy Right ureteral calculus: S/P Cystoscopy, Right Ureteronephroscopy, Retrograde Pyelogram, Right Ureteral Dilation, laser incision of stricture, Laser Destruction and basket Extraction of Stone, Stent Exchange performed on 03/[address] abd/pel;vis showed a right ureteral stent is unchanged in position. No calcifications are seen along the course of the stent. There is moderate to severe right-sided hydronephrosis, similar to previous. There is significant urothelial thickening and enhancement throughout the right renal pelvis and the right ureter with surrounding perinephric and periureteric stranding. There is a small focus of gas within the right renal pelvis, as well as right-sided retroperitoneal gas along the course of the ureter. This could be related to recent instrumentation and possibly ureteral injury. Clinical correlation will be required. Urine negative and urine cx contaminated Continue to hold on antibiotic since pt continue to improves without abx Follow up with urology outpatient Hypertension: BP eBP stable Continue atenolol, amlodipine Lisinopril was on hold due to MOR, will resume on discharge Continue monitor BP CVA (cerebral vascular accident): H/o Right anterior occipital stroke in 10/2018 per record- residual "slowing" in general Not currently taking aspirin (recently admitting for GI bleed) Continue lipitor Anxiety: Fibromyalgia: Continue venlafaxine DVT Px: SCDs due to recent admission for GI bleeding Code status: DNR/DNI Disposition Discharge home today Updated provided to daughter Ms. Alma Lowery. She requests updates from providers through [phone]. Admission and Anticipated Discharge Date Admission Date: March 19, 2020 Subjective Pt was seen and examined Lying in bed with no distress Pt looks much better She is not confused and was able to communicate well and follow commands She said that she feels tired because she did not sleep well last night due to the noise She tolerated the low fiber diet Denies any chest pain, palpitation, dizziness and SOB Physical Exam Physical Exam: General- Confused Head- atraumatic Eyes- PERRL, EOMI, ENT- oropharynx clear Neck- supple, no JVD Lungs- clear to auscultation Heart- regular rhythm; no murmur Abdomen- normal bowel sounds, soft, nontender Extremities- no calf tenderness Neuro- alert, awake PERRL, EOMI; no facial palsy; no dysarthria Skin- warm & dry Results & Data Results & Data ([facility]) Vital Signs (Past 12 Hours) Vital Signs Temp Pulse Resp BP BP Pulse Ox 03/20/20 15:12 36.9 C 73 14 134/78 95 03/20/20 07:07 36.9 C 83 14 150/77 H 98
--- NOTE | 2020-03-22 01:45 | Discharge Summary ---
Date of Service March 20, 2020 Admission HPI Per Admitting Provider History obtained from patient, family, and records. History limited from patient secondary to dementia. Medical history significant for chronic diastolic heart failure (EF 55%, TTE 2018), hypertension, CVA, dementia, right breast cancer status post surgery, colon cancer status post surgery, CRI (baseline creatinine 1.3), urolithiasis status post recent stent exchange, past tobacco abuse. Recent confinement 2 weeks ago for LGIB/colitis. Stool studies negative. Severe right hydronephrosis, mild perinephric/periureteral infiltration/multiple right ureteral calculi/fragments noted on CT. Urology recommended outpatient ureteroscopy. 4 days ago, patient underwent cystoscopy, right ureteral dilatation, stone extraction, and stent exchange outpatient by [facility] [place] [facility]. Patient discharged on 5-day Cipro course. As per daughter, last night patient had sudden onset of left flank/abdominal pain associated with nausea. At the ER, multiple nonbloody bowel movements noted. Patient currently denies chest pain, S OB, abdominal/flank pain/hematuria. She has no recollection of events prior to ER arrival. 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, lives with daughter Admission Exam Per Admitting Provider GENERAL: Comfortable, demented, pleasant, no respiratory distress SKIN: Normal color, warm HEENT: [place] palpebral conjunctivae, no ptosis, dry buccal mucosa NECK : Supple, no tenderness CHEST : CTA, no tenderness HEART : RRR, no obvious murmurs ABDOMEN: Some distention, nontender EXTREMITIES : Minimal LE swelling, no LE tenderness, no other conspicuous deformities noted NEUROLOGIC : Coherent, demented, chronic R facial asymmetry, no other gross focality Principal Diagnosis ARF (acute renal failure): Nonspecific colitis Right ureteral calculus: Hypertension: CVA (cerebral vascular accident): Discharge Exam General- Confused Head- atraumatic Eyes- PERRL, EOMI, ENT- oropharynx clear Neck- supple, no JVD Lungs- clear to auscultation Heart- regular rhythm; no murmur Abdomen- normal bowel sounds, soft, nontender Extremities- no calf tenderness Neuro- alert, awake PERRL, EOMI; no facial palsy; no dysarthria Skin- warm & dry Discharge Data Allergies Allergy/AdvReac Type Severity Reaction Status Date / Time No Known Allergies Allergy Unknown Verified 03/18/20 22:54 Consultations 03/19/20 00:49 ED Decision to Admit Stat Ordered Studies 03/18/20 21:49 CT abd pelvis IV con only Urgent XR chest 1V portable CLINICAL HISTORY: renal failure COMPARISON STUDY: 02/09/2020 FINDINGS: The heart is mildly enlarged. There is aortic tortuosity/ectasia. There is no lobar consolidation. There are no significant pleural effusions. There is mild interstitial thickening.[Surgical clips project over the right axillary region. IMPRESSION: Cardiomegaly and mild interstitial thickening. No evidence of overt failure. No evidence of focal pulmonary consolidation ACT 112: Negative or not required by law. Electronically signed by: Darren Townsend M.D. 03/19/2020 7:26 AM T SCAN OF THE ABDOMEN AND PELVIS WITH IV CONTRAST CLINICAL HISTORY: Generalized abdominal pain. Nausea and vomiting. Diarrhea. COMPARISON STUDY: Abdominal CT dated 03/01/2020. TECHNIQUE: Following the IV administration of 93 cc of Optiray 320, CT scan of the abdomen and pelvis is performed from the lung bases to the proximal femora. Images are reviewed in the axial, sagittal, and coronal planes. IV contrast was administered without complication. A dose lowering technique was utilized adhering to the principles of ALARA. The examination is modestly degraded by motion artifact. CT DOSE: 520.31 mGy.cm FINDINGS: Lung bases: The heart is normal in size and without pericardial effusion. There are scattered coronary artery calcifications. The lung bases are clear noting bibasilar scarring/atelectasis. There is a small hiatal hernia. Fluid fills the distal esophagus. Liver: The contrast-enhanced liver is normal in size, contour, and attenuation. There is no intrahepatic biliary ductal dilatation. The hepatic veins and portal veins are patent. Gallbladder: Unremarkable. Spleen: Normal in size and attenuation. Pancreas: Moderately atrophic and grossly unremarkable. Adrenal glands: Unremarkable. Kidneys: The contrast enhanced kidneys demonstrate cortical atrophy, right side greater than left. A right ureteral stent is in appropriate position. There is significant right urothelial thickening and enhancement with periureteric and right-sided perinephric stranding. Moderate to severe right-sided hydronephrosis persists. A small focus of gas is present within the right renal pelvis. No calculi are identified in the right ureter along the course of the stent. There is a punctate nonobstructing right renal calculus. A 3 mm nonobstructing calculus is seen in the left upper pole. No left-sided hydronephrosis is seen. The kidneys enhance symmetrically. Abdominal vasculature: The abdominal aorta is normal in course and caliber noting mild atherosclerotic calcification. Bowel: There is postoperative change from lower anterior resection. No bowel obstruction is seen. There is mild wall thickening with mucosal hyperemia and pericolonic inflammation involving the left colon. This extends from the mid transverse colon to the rectum. Liquid stool is seen throughout the entire colon. The appendix is well-visualized and normal. Peritoneum: No intraperitoneal free air is seen. There are small foci of gas in the right retroperitoneum adjacent to the right ureter. There is no abdominal ascites. Lymphadenopathy: None. Pelvic viscera: The bladder is normal as visualized, and contains the distal end of a right ureteral stent. The uterus is surgically absent. No adnexal lesion is seen. Skeletal structures: The skeletal structures are osteopenic. There is moderate lumbosacral spondylosis. No lytic or blastic lesions are seen. IMPRESSION: 1. Findings are consistent with a nonspecific colitis as detailed above, likely on an infectious or inflammatory basis. Clinical correlation will be required. 2. A right ureteral stent is unchanged in position. No calcifications are seen along the course of the stent. 3. There is moderate to severe right-sided hydronephrosis, similar to previous. 4. There is significant urothelial thickening and enhancement throughout the right renal pelvis and the right ureter with surrounding perinephric and periureteric stranding. Correlate clinically and urinalysis for evidence of superimposed urinary tract infection. 5. There is a small focus of gas within the right renal pelvis, as well as right-sided retroperitoneal gas along the course of the ureter. This could be related to recent instrumentation and possibly ureteral injury. Clinical correlation will be required. 6. Small hiatal hernia with fluid filling the distal esophagus. Note that this may place the patient at risk for aspiration. 7. Bilateral nephrolithiasis. 8. Additional findings as above. ACT 112: Negative or not required by law. Electronically signed by: Gregg Spaulding M.D. 03/19/2020 7:53 AM Dictated: 03/19/2044 Transcribed: 03/19/2044 Hospital Course (1) ARF (acute renal failure): CKD stage 3 Mostly related to diarrhea Creatinine on admission 1.5 with baseline around 1.[address] abd/pelvis showed no acute finding Lisinopril on hold, will resume on discharge Continue monitor BMP Continue to avoid nephrotoxic agents Nonspecific colitis: CT abd/pelvis done in the ER showed no bowel obstruction is seen. There is mild wall thickening with mucosal hyperemia and pericolonic inflammation involving the left colon. This extends from the mid transverse colon to the rectum. Liquid stool is seen throughout the entire colon Just completed a course of antibiotic Stools for C diff negative On last admission GI planned for outpatient colonoscopy at the end of April as per Daughter Case discussed with GI that agreed about no additional abx since pt recently completed course of abx for the nonspecific colitis Tolerated low fiber diet GI recommended to keep the appointment for the colonoscopy Right ureteral calculus: S/P Cystoscopy, Right Ureteronephroscopy, Retrograde Pyelogram, Right Ureteral Dilation, laser incision of stricture, Laser Destruction and basket Extraction of Stone, Stent Exchange performed on 03/[address] abd/pel;vis showed a right ureteral stent is unchanged in position. No calcifications are seen along the course of the stent. There is moderate to severe right-sided hydronephrosis, similar to previous. There is significant urothelial thickening and enhancement throughout the right renal pelvis and the right ureter with surrounding perinephric and periureteric stranding. There is a small focus of gas within the right renal pelvis, as well as right-sided retroperitoneal gas along the course of the ureter. This could be related to recent instrumentation and possibly ureteral injury. Clinical correlation will be required. Urine negative and urine cx contaminated Continue to hold on antibiotic since pt continue to improves without abx Follow up with urology outpatient Hypertension: BP eBP stable Continue atenolol, amlodipine Lisinopril was on hold due to MOR, will resume on discharge Continue monitor BP CVA (cerebral vascular accident): H/o Right anterior occipital stroke in 10/2018 per record- residual "slowing" in general Not currently taking aspirin (recently admitting for GI bleed) Continue lipitor Anxiety: Fibromyalgia: Continue venlafaxine DVT Px: SCDs due to recent admission for GI bleeding Code status: DNR/DNI Disposition Discharge home today Updated provided to daughter Ms. Shila Lowery. She requests updates from providers through [phone]. Total Time Total Time Spent Total Time Spent (In Minutes): 35 minutes Total Time Includes: Examination of the Patient, Discharge Planning, Medication Reconciliation, Communication With Other Providers and Other Discharge Plan Discharge Items Patient Disposition: Home - Self-Care Reason For Visit: ARF Discharge Diagnosis: ARF (acute renal failure): Nonspecific colitis Right ureteral calculus: Hypertension: CVA (cerebral vascular accident): Activity: Resume your previous activity Non-emergency contact: Primary Care Provider and [facility] Call non-emergency contact if: you have any medication questions and your temperature is above 101 Follow-up/Referrals: Jaden Jones MD [Primary Care Provider] - Diet: Heart Healthy and Low Fiber Addtl Attending Provider Instructions: Follow up with your primary care provider in 1 week (Please call to schedule for the appointment) Follow up with gastroenterology for the colonoscopy in April [facility] Check BMP in 1 week to monitor electrolytes and kidney function Fall precaution Continue low fiber diet and advanced as tolerated Pending Studies at Discharge: No Stand-Alone Forms: [employer], Opioid Pain Management, Smoking Cessation Medications and DC Order Prescriptions: Continued Lactobacillus acidophilus [Acidophilus] Capsule 5,000 mmu cells PO DAILY Qty: 30 RF: 0 famotidine [Pepcid] 20 mg Tablet 20 mg PO DAILY PRN (Reason: Indigestion) RF: 0 oxycodone-acetaminophen [Percocet] 7.5-325 mg tablet 1 tab PO Q8H PRN (Reason: pain) Qty: 7 RF: 0 atorvastatin 20 mg tablet 20 mg PO HS RF: 0 venlafaxine 37.5 mg tablet 37.5 mg PO PM RF: 0 lisinopril 40 mg tablet 40 mg PO HS RF: 0 atenolol 100 mg tablet 100 mg PO HS RF: 0 amlodipine 5 mg tablet 5 mg PO HS RF: 0 docusate sodium 100 mg Capsule 100 mg PO HS PRN (Reason: Constipation) RF: 0 gabapentin 300 mg Capsule 300 mg PO HS PRN (Reason: Pain) RF: 0 acetaminophen 500 mg Tablet 1,000 mg PO Q8H PRN (Reason: Pain) RF: 0 Discontinued ciprofloxacin HCl [Cipro] 500 mg tablet 500 mg PO Q12H Qty: 10 RF: 0 Discharge Orders: Discharge Order (Routine); Ordered 03/20/20 Ordered By: Jennifer Mehta/Other Patient Handouts: Low-Fiber Diet Admission Data Admit Date/Time: 03/19/20 02:31 Attending Provider: Jennifer Garcia Admit Provider: George Pozo Primary Care Provider: Jaden Jones Other Providers: George Pozo Other Interventions: Discharge Summary Assessment (RN) Last Done: 03/20/20 19:11
== END 2020-03-20 20:45 | disposition home or self-care (01) ==
LOC: ED 21:21 → 3W 21:21 → SUATTDRO 03-19 02:31 → 3W 03-19 04:09